=== PATIENT | male | born 1940 ===

== ENCOUNTER 2017-11-26 04:21 | Inpatient (IN) | payer BC, MEDICARE ==
[2017-11-26 05:17] VITALS: BMI 22.3
[2017-11-26] MEDS ORDERED: Iohexol 240 (50 ml) PO ONE (05:47)
[2017-11-26] MEDS ORDERED: Iohexol 240 (50 ml) ONE (06:08)
--- NOTE | 2017-11-26 06:54 | ED PDOC ---
HPI: Abdomen Time Seen by Provider: 11/26/17 05:26 Chief Complaint (Nursing): Abdominal Pain Chief Complaint (Provider): Abdominal Pain History Per: Patient History/Exam Limitations: no limitations Onset/Duration Of Symptoms: Days (x1) Current Symptoms Are (Timing): Still Present Additional Complaint(s): 77 y/o male with a PMHx of HTN presents to the ED for evaluation of abdominal pain, onset one day ago. Patient reports abdominal pain is associated with nausea. Patient additionally reports of feeling like his abdomen is distended and bloated. Patient states pain is worse in the RUQ and the Suprapubic area. Patient reports of having normal stool and normal urination since onset. Denies fever, vomiting and abdominal surgeries in the past. Gandy Dancer number [id number] used to obtain history from patient. PMD: Dr. Thompson Past Medical History Reviewed: Historical Data, Nursing Documentation, Vital Signs Vital Signs: Last Vital Signs Temp 99.7 F H 11/26/17 05:17 Pulse 75 11/26/17 05:17 Resp 18 11/26/17 05:17 BP 163/72 H 11/26/17 05:17 Pulse Ox 97 11/26/17 05:17 - Medical History PMH: HTN - Surgical History Surgical History: No Surg Hx Denies: Appendectomy, Cholecystectomy - Family History Family History: States: Unknown Family Hx - Home Medications Home Medications: Ambulatory Orders Medication Instructions Recorded Ibuprofen [Motrin Tab] 600 mg PO Q8 PRN 11/26/17 RX: Enalapril Maleate [Vasotec] 5 mg PO DAILY 11/26/17 - Allergies Allergies/Adverse Reactions: Allergies Allergy/AdvReac Type Severity Reaction Status Date / Time No Known Allergies Allergy Verified 11/26/17 05:17 Review of Systems ROS Statement: Except As Marked, All Systems Reviewed And Found Negative Constitutional: Negative for: Fever Gastrointestinal: Positive for: Nausea, Abdominal Pain, Other (Bloated/Distended Abdomen). Negative for: Vomiting, Diarrhea, Constipation Physical Exam - Reviewed Nursing Documentation Reviewed: Yes Vital Signs Reviewed: Yes - Physical Exam Appears: Positive for: No Acute Distress, Uncomfortable Head Exam: Positive for: ATRAUMATIC, NORMOCEPHALIC Skin: Positive for: Normal Color, Warm, Dry Eye Exam: Positive for: Normal appearance, EOMI, PERRL Neck: Positive for: Normal, Painless ROM Cardiovascular/Chest: Positive for: Regular Rate, Rhythm. Negative for: Murmur Respiratory: Positive for: Normal Breath Sounds. Negative for: Respiratory Distress Gastrointestinal/Abdominal: Positive for: Normal Exam, Soft, Tenderness (RUQ and Suprapubic Tenderness), Distended (Mild Distention) Back: Positive for: Normal Inspection. Negative for: L CVA Tenderness, R CVA Tenderness Extremity: Positive for: Normal ROM. Negative for: Pedal Edema, Deformity Neurologic/Psych: Positive for: Alert, Oriented. Negative for: Motor/Sensory Deficits - Laboratory Results Result Diagrams: 11/26/17 06:36 11/26/17 06:36 - ECG O2 Sat by Pulse Oximetry: 97 (RA) Pulse Ox Interpretation: Normal Medical Decision Making Medical Decision Making: Time: 605 A/P: Well appearing 77 y/o male with abdominal pain -- Differentials include but not limited to gallstones vs. cholecystitis vs. pancreatitis vs colitis, vs UTI -- CT Abd/Pelvis PO&IV Contrast -- CMP -- Lipase -- CBC with Differentials -- Iohexol 50 ml PO -- Toradol 15 mg IVP -- Urinalysis -- US Gallbladder & Common Duct Time: 0700 -- Patient endorsed to Dr. Medina, pending ER workup, reassessment and final ER disposition. Scribe Attestation: Documented by Robyn Hennessy, acting as a scribe for Britton Grewal MD. Provider Scribe Attestation: All medical record entries made by the Scribe were at my direction and personall y dictated by me. I have reviewed the chart and agree that the record accurately reflects my personal performance of the history, physical exam, medical decision making, and the department course for this patient. I have also personally directed, reviewed, and agree with the discharge instructions and disposition. Disposition - Clinical Impression Clinical Impression: Cholecystitis - Patient ED Disposition Is Patient to be Admitted: Transfer of Care - Disposition Disposition: Transfer of Care Disposition Time: 07:00 Condition: STABLE
[2017-11-26 07:31] LABS: BASO # 0.1 K/uL (0.0-0.2); BASO % 0.3 % (0.0-2.0); HEMOGLOBIN 13.5 g/dL (12.0-18.0); LYMPH # 1.4 K/uL (1.0-4.3); LYMPH % 8.7 % (20.0-40.0); MEAN CELL VOLUME 91.1 fl (80.0-94.0); MEAN CORPUSCULAR HEMOGLOBIN 30.6 pg (27.0-31.0); MEAN CORPUSCULAR HGB CONC 33.6 g/dL (33.0-37.0); MEAN PLATELET VOLUME 9.1 fl (7.2-11.7); MONO # 1.1 K/uL (0.0-0.8); MONO % 6.8 % (0.0-10.0); NEUT # 13.4 K/uL (1.8-7.0); NEUT % 84.2 % (50.0-75.0); NRBC % 0.1 % (0.0-0.0); PLATELET COUNT 269 K/uL (130-400); RBC 4.42 Mil/uL (4.40-5.90); RED CELL DISTRIBUTION WIDTH 13.7 % (11.5-14.5); WHITE BLOOD COUNT 15.9 K/uL (4.8-10.8)
[2017-11-26 07:45] LABS: ALB/GLOB RATIO 1.2 (1.0-2.1); ALBUMIN 4.1 g/dL (3.5-5.0); ALT/SGPT 30 U/L (21-72); AST/SGOT 22 U/L (17-59); BLOOD UREA NITROGEN 16 mg/dl (9-20); CALCIUM 9.1 mg/dL (8.4-10.2); GFR NON-AFRICAN AMERICAN > 60; LIPASE 42 U/L (23-300)
[2017-11-26] MEDS ORDERED: Sodium Chloride 0.9% 50 ML IV ONE (07:53)
[2017-11-26] MEDS ORDERED: Iohexol 300 100 ML IJ ONE (07:53)
--- NOTE | 2017-11-26 08:12 | ED PDOC ---
- Laboratory Results Result Diagrams: 11/26/17 06:36 11/26/17 06:36 - ECG O2 Sat by Pulse Oximetry: 97 (RA) Medical Decision Making Medical Decision Making: Called to evaluate pt with increasing abd pain and distention. Abd rigid tender Diminished bowel sounds. Will obtain CT abd/pelvis and surgical eval. Disposition - Clinical Impression Clinical Impression: Cholecystitis - POA Present On Arrival: None - Disposition Disposition: Admitted as In-Patient Disposition Time: 09:43 Forms: [employer] ([place]an)
[2017-11-26 08:30] LABS: URINE BACTERIA RARE (<OCC); URINE BILIRUBIN NEGATIVE (NEGATIVE); URINE BLOOD NEGATIVE (NEGATIVE); URINE CLARITY SLIGHTY-CLOUDY (Clear); URINE COLOR YELLOW (YELLOW); URINE GLUCOSE (UA) NEG (Normal); URINE LEUKOCYTE ESTERASE NEG Leu/uL (Negative); URINE PROTEIN NEGATIVE (NEGATIVE); URINE UROBILINOGEN 0.2-1.0 mg/dL (0.2-1.0)
[2017-11-26 08:57] LABS: BANDS 2 % (0-2); LYMPHOCYTE 9 % (20-50); MONOCYTE 3 % (0-10); NEUTROPHIL 86 % (42-75); PLATELET ESTIMATE NORMAL (NORMAL); TOTAL CELLS COUNTED 100
--- NOTE | 2017-11-26 09:31 | CT ---
Date of service: 11/26/2017 PROCEDURE: CT Abdomen and Pelvis with contrast HISTORY: RUQ pain, suprapubic pain COMPARISON: Ultrasound same day TECHNIQUE: Contrast dose: 95 milliliters Radiation dose: Total exam DLP = 299 mGy-cm. This CT exam was performed using one or more of the following dose reduction techniques: Automated exposure control, adjustment of the mA and/or kV according to patient size, and/or use of iterative reconstruction technique. FINDINGS: LOWER THORAX: Bilateral lower lobe subsegmental atelectasis and scarring is identified. No effusion is seen. Visualized esophagus shows evidence of small hiatal hernia. Visualized stomach shows no evidence of abnormal wall thickening. Duodenum is within normal limits. LIVER: A few small low-density probable liver cysts are appreciated in the liver. No appreciable solid enhancing mass is noted in the liver. There is some subtle intrahepatic dilatation identified. Common bile duct measures up to 9 up millimeters but appears to taper distally. Pancreatic duct is top-normal in size. GALLBLADDER AND BILE DUCTS: Gallbladder is mildly distended. In addition there is a 2.3 centimeter gallstone within the neck of the gallbladder. There appears to be mild pericholecystic fluid adjacent to the fundus of the gallbladder. Finding is suspicious for cholecystitis in the correct clinical setting although does not appear to be significant gallbladder wall thickening. PANCREAS: Pancreas is normal in outline and density. Pancreatic duct is top-normal in size. No peripancreatic inflammatory changes are seen. SPLEEN: Unremarkable. ADRENALS: Unremarkable. No mass. KIDNEYS AND URETERS: No hydronephrosis. No perinephric changes. No solid renal masses noted. No renal calculi identified. Kidneys are normal in size. VASCULATURE: No evidence of aneurysm. BOWEL: Chronic diverticular changes are noted. No pericolonic inflammatory change or bowel wall thickening is noted. No small bowel obstruction is noted. APPENDIX: Within normal limits. PERITONEUM: No ascites is seen elsewhere. No free intraperitoneal air is noted. LYMPH NODES: Unremarkable. No enlarged lymph nodes. BLADDER: Bladder is distended more than likely secondary to enlarged prostate gland. REPRODUCTIVE: Prostate gland is noted to be enlarged with heterogeneous density and calcification. BONES: No acute fracture. OTHER FINDINGS: None. IMPRESSION: Distended gallbladder with moderate size gallstone in the neck of the gallbladder. Mild pericholecystic fluid is appreciated without significant wall thickening. Cholecystitis is the diagnosis of exclusion. Nonspecific mild common bile duct and intrahepatic ductal dilatation although no common bile duct stone or ampullary abnormality is clearly seen. A few small liver cysts are noted.
[2017-11-26] MEDS ORDERED: Piperacillin/Tazobact 3.375 GM in Sodium Chloride 0.9% 100 ML IVPB STA (09:33)
[2017-11-26] MEDS ORDERED: Sodium Chloride 0.9% 1,000 ML IV STA (09:39)
--- NOTE | 2017-11-26 09:44 | US ---
Date of service: 11/26/2017 HISTORY: RUQ pain COMPARISON: CT scan same day. TECHNIQUE: Real-time transabdominal ultrasound examination of the right upper quadrant was performed.. FINDINGS: LIVER: Measures 17 cm in length. Grossly normal echogenicity of the liver parenchyma. Small cyst seen on the CT scan are not as well appreciated on this ultrasound examination. GALLBLADDER: There is a shadowing gallstone lodged within the neck of the gallbladder. This was nonmobile. Gallbladder wall appeared to measure 3 millimeters. There is some minimal hazy density of the gallbladder wall. Better appreciated on the CT scan was some pericholecystic fluid. This is not as well seen on the ultrasound exam possibly due to motion. COMMON BILE DUCT: Measures 90 10 mm. No stones. No dilatation. PANCREAS: Head and body of the pancreas are normal in outline. The tail the pancreas was obscured by bowel gas. Pancreas is better appreciated on the CT scan. RIGHT KIDNEY: Measures 10.3 cm in length. Normal echogenicity. No calculus, mass, or hydronephrosis. AORTA: No aneurysmal dilatation. IVC: Unremarkable. OTHER FINDINGS: None . IMPRESSION: Nonmobile calcified gallstone in the neck of the gallbladder. Patient was administered pain medication, and therefore sonographic Yo sign is not of diagnostic value. There may be some subtle haziness adjacent to the gallbladder wall which may reflect the low-density fluid seen on the CT scan. Further clinical follow-up of the patient is suggested. Common bile duct measures up to 9 millimeters without common bile duct calculus.
[2017-11-26] MEDS ORDERED: Piperacillin/Tazobact 3.375 gm Inj IVPB ONE (09:55)
--- NOTE | 2017-11-26 10:11 | CP.PCM.CON ---
History of Present Illness - History of Present Illness History of Present Illness: General surgery consult note for Dr. Suhail Womack, PGY-2 Pt S & E at bedside at 0950. History obtained using Interpretor Igor, #[id number] 77M w/PMH sig for HTN on Enalpril daily consulted for RUQ ab pain x 1 day. Pt reports fried pork for lunch yesterday with onset of moderate-severe constant RUQ abdominal pain that radiates to umbilicus and to back at 6pm. Pain temporarily alleviated by home med for cramping. Admits to nausea. Denies ever having prior, ever having problems with fried foods, constipation, diarrhea, changes in urinary habits, [place], sore throat, chest pain, SOB, F & C, fatigue, other complaints. Last BM was normal at 1:30pm one day prior to evaluation. In ED, afebrile, leukocytosis of 15.9. LFTs WNL. Lipase WNL. CT ab w/findings of distended GB, thickened wall, pericholecystic frluid, and stone in GB neck. Ab U/S w/stone in neck. PMH: HTN PSH: Hemorrhoidectomy All: NKDA SH: Denies ETOH, tobacco or illicit drug use or history of FH: Non contributory Review of Systems - Review of Systems All systems: reviewed and no additional remarkable complaints except - Constitutional Constitutional: absent: Chills, Fever, Weakness - EENT Ears: absent: Dizziness Nose/Mouth/Throat: absent: Sore Throat - Cardiovascular Cardiovascular: absent: Chest Pain - Gastrointestinal Gastrointestinal: Abdominal Pain, Nausea. absent: Change in Bowel Habits, Constipation, Diarrhea, Vomiting - Genitourinary Genitourinary: absent: Dysuria, Hematuria, Urinary Frequency - Musculoskeletal Musculoskeletal: Back Pain (radiation from RUQ) - Integumentary Integumentary: absent: Rash - Neurological Neurological: absent: Weakness - Psychiatric Psychiatric: Change in Appetite (decreased) - Endocrine Endocrine: absent: Fatigue Past Patient History - Past Social History Smoking Status: Never Smoked - CARDIAC Hx Hypertension: Yes - PSYCHIATRIC Hx Substance Use: No - SURGICAL HISTORY Hx Appendectomy: No Hx Cholecystectomy: No - ANESTHESIA Hx Anesthesia: Yes Meds Allergies/Adverse Reactions: Allergies Allergy/AdvReac Type Severity Reaction Status Date / Time No Known Allergies Allergy Verified 10/07/18 05:17 - Medications Medications: Current Medications Piperacillin Sod/Tazobactam (Sod 3.375 gm/ Sodium Chloride) 100 mls @ 100 mls/hr IVPB STAT STA; Protocol Stop: 11/26/17 10:32 Last Admin: 11/26/17 10:04 Dose: 100 mls/hr Sodium Chloride (Sodium Chloride 0.9%) 1,000 mls @ 100 mls/hr IV .Q10H STA Stop: 11/26/17 19:38 Last Admin: 11/26/17 10:02 Dose: 100 mls/hr Physical Exam - Constitutional Appears: Non-toxic, No Acute Distress - Head Exam Head Exam: ATRAUMATIC, NORMAL INSPECTION, NORMOCEPHALIC - Eye Exam Eye Exam: EOMI, Normal appearance - ENT Exam ENT Exam: Mucous Membranes Moist, Normal Exam - Neck Exam Neck exam: Positive for: Full Rom, Normal Inspection - Respiratory Exam Respiratory Exam: Clear to Auscultation Bilateral, NORMAL BREATHING PATTERN. absent: Rales, Rhonchi, Wheezes, Respiratory Distress - Cardiovascular Exam Cardiovascular Exam: REGULAR RHYTHM, +S1, +S2 - GI/Abdominal Exam GI & Abdominal Exam: Distended, Normal Bowel Sounds, Soft, Tenderness (RUQ). absent: Firm, Guarding, Hernia - Rectal Exam Rectal Exam: Deferred - Extremities Exam Extremities exam: Positive for: normal inspection. Negative for: pedal edema, tenderness - Neurological Exam Neurological exam: Alert, Oriented x3 - Psychiatric Exam Psychiatric exam: Normal Affect, Normal Mood - Skin Skin Exam: Dry, Intact, Normal Color, Warm Results - Vital Signs Recent Vital Signs: Last Vital Signs Temp 99.7 F H 11/26/17 05:17 Pulse 75 11/26/17 05:17 Resp 18 11/26/17 05:17 BP 163/72 H 11/26/17 05:17 Pulse Ox 97 11/26/17 09:44 - Labs Result Diagrams: 11/26/17 06:36 11/26/17 06:36 Labs: Laboratory Results - last 24 hr 11/26/17 11/26/17 11/26/17 06:36 06:36 07:24 WBC 15.9 H RBC 4.42 Hgb 13.5 Hct 40.3 MCV 91.1 MCH 30.6 MCHC 33.6 RDW 13.7 Plt Count 269 MPV 9.1 Neut % (Auto) 84.2 H Lymph % (Auto) 8.7 L [place] % (Auto) 6.8 Eos % (Auto) 0.0 Baso % (Auto) 0.3 Neut # (Auto) 13.4 H Lymph # (Auto) 1.4 [place] # (Auto) 1.1 H Eos # (Auto) 0.0 Baso # (Auto) 0.1 Neutrophils % (Manual) 86 H Band Neutrophils % 2 Lymphocytes % (Manual) 9 L Monocytes % (Manual) 3 Platelet Estimate Normal RBC Morphology Normal Sodium 138 Potassium 3.8 Chloride 106 Carbon Dioxide 22 Anion Gap 14 BUN 16 Creatinine 0.6 L Est GFR ( Amer) > 60 Est GFR (Non-Af Amer) > 60 Random Glucose 114 H Calcium 9.1 Total Bilirubin 0.7 AST 22 ALT 30 Alkaline Phosphatase 116 Total Protein 7.7 Albumin 4.1 Globulin 3.5 Albumin/Globulin Ratio 1.2 Lipase 42 Urine Color Yellow Urine Clarity Slighty-cloudy Urine pH 5.0 Ur Specific [place] 1.023 Urine Protein Negative Urine Glucose (UA) Neg Urine Ketones Negative Urine Blood Negative Urine Nitrate Negative Urine Bilirubin Negative Urine Urobilinogen 0.2-1.0 Ur Leukocyte Esterase Neg Urine RBC (Auto) 3 Urine Microscopic WBC < 1 Urine Bacteria Rare Assessment & Plan - Assessment and Plan (Free Text) Assessment: 77M w/PMH sig for HTN w/acute cholecystitis Plan: Admit to medical service Monitor VS Daily labs Pain control IV Abx Will need cardiac clearance prior to scheduling OR DW Dr. Tariq Womack, PGY-2 - Date & Time Date: 11/26/17 Time: 10:11
--- NOTE | 2017-11-26 11:20 | CP.PCM.HP ---
<WolfRosa - Last Filed: 11/26/17 12:51> History of Present Illness - History of Present Illness History of Present Illness: 76 y/o M with PMH of HTN (on enalapril) presented to ED c/o constant, sharp RUQ pain that began yesterday evening at about 5pm. The patient reports the pain was accompanied by some nausea, and was 7/10 in nature. His last meal prior to onset of pain was yesterday afternoon at about 1pm. He denied any hx of similar pain in the past, fever, chills or vomitting. PMD: Dr. Thompson PMHx: HTN MEDS: Enalapril 5mg PO QD PSHx: Hemorrhoidectomy AllERGIES: NKDA FH: Non contributory SH: Denies cigarette, ETOH use, or illicit drugs ED COURSE: Vitals: 99.7F, P-75bpm, RR- 18 BP: 163/72 CBC- WBC: 15.9, H & H: 13.5/40.3, Plt: 269 CMP: Lipase-42, AST- 22, ALT-30, Alk Phos- 116 UA: neg for leuk esterase, neg for nitrates Ketorolac 15mg IVP & Morphine 2 mg IVP were given Abd US: nonmobile calcified gallstone in neck of gallbladder; common bile duct 9 ml w/o common bile duct calculus. Abd CT: distended gallbladder with mod size gallstone in neck of gallbladder. Mild pericholecystic fluid is appreciated w/o significant wall thickening. Present on Admission - Present on Admission Any Indicators Present on Admission: No History of DVT/PE: No History of Uncontrolled Diabetes: No Urinary Catheter: No Decubitus Ulcer Present: No Past Patient History - Past Social History Smoking Status: Never Smoked - CARDIAC Hx Hypertension: Yes - PSYCHIATRIC Hx Substance Use: No - SURGICAL HISTORY Hx Appendectomy: No Hx Cholecystectomy: No - ANESTHESIA Hx Anesthesia: Yes Meds Allergies/Adverse Reactions: Allergies Allergy/AdvReac Type Severity Reaction Status Date / Time No Known Allergies Allergy Verified 11/26/17 05:17 Physical Exam - Constitutional Appears: Non-toxic, No Acute Distress - Head Exam Head Exam: ATRAUMATIC, NORMAL INSPECTION - ENT Exam ENT Exam: Mucous Membranes Moist - Respiratory Exam Respiratory Exam: Clear to Auscultation Bilateral - Cardiovascular Exam Cardiovascular Exam: REGULAR RHYTHM, +S1, +S2 - GI/Abdominal Exam Additional comments: soft with mild RUQ tenderness, neg Yo's sign, no rigidity or guarding - Extremities Exam Additional comments: calves- nontender, no pedal edema, distal pulses palpable - Neurological Exam Neurological exam: Alert, Oriented x3 - Psychiatric Exam Psychiatric exam: Normal Affect, Normal Mood - Skin Skin Exam: Dry, Intact Results - Vital Signs Recent Vital Signs: Last Vital Signs Temp 98.4 F 11/26/17 10:42 Pulse 75 11/26/17 10:42 Resp 16 11/26/17 10:42 BP 119/63 11/26/17 10:42 Pulse Ox 96 11/26/17 10:42 - Labs Result Diagrams: 11/26/17 06:36 11/26/17 06:36 Labs: Laboratory Results - last 24 hr 11/26/17 11/26/17 11/26/17 06:36 06:36 07:24 WBC 15.9 H RBC 4.42 Hgb 13.5 Hct 40.3 MCV 91.1 MCH 30.6 MCHC 33.6 RDW 13.7 Plt Count 269 MPV 9.1 Neut % (Auto) 84.2 H Lymph % (Auto) 8.7 L [place] % (Auto) 6.8 Eos % (Auto) 0.0 Baso % (Auto) 0.3 Neut # (Auto) 13.4 H Lymph # (Auto) 1.4 [place] # (Auto) 1.1 H Eos # (Auto) 0.0 Baso # (Auto) 0.1 Neutrophils % (Manual) 86 H Band Neutrophils % 2 Lymphocytes % (Manual) 9 L Monocytes % (Manual) 3 Platelet Estimate Normal RBC Morphology Normal Sodium 138 Potassium 3.8 Chloride 106 Carbon Dioxide 22 Anion Gap 14 BUN 16 Creatinine 0.6 L Est GFR ( Amer) > 60 Est GFR (Non-Af Amer) > 60 Random Glucose 114 H Calcium 9.1 Total Bilirubin 0.7 AST 22 ALT 30 Alkaline Phosphatase 116 Total Protein 7.7 Albumin 4.1 Globulin 3.5 Albumin/Globulin Ratio 1.2 Lipase 42 Urine Color Yellow Urine Clarity Slighty-cloudy Urine pH 5.0 Ur Specific [place] 1.023 Urine Protein Negative Urine Glucose (UA) Neg Urine Ketones Negative Urine Blood Negative Urine Nitrate Negative Urine Bilirubin Negative Urine Urobilinogen 0.2-1.0 Ur Leukocyte Esterase Neg Urine RBC (Auto) 3 Urine Microscopic WBC < 1 Urine Bacteria Rare Assessment & Plan - Assessment and Plan (Free Text) Assessment: 76 y/o M with PMH of HTN (on enalapril) who presented to ED with RUQ pain and found to have cholecysitis. 1. Cholecystitis (Acute, symptomatic) -Surgery team is on case and recommendations have been appreciated. Will continue to fu recommendations. -Dr. Gutiérrez consulted for cardiac clearance as per surgery team. -Continue pain medication regimen -Continue IV Zosyn 3.375gm Q6 2. HTN ( Chronic) -Continue enalapril 5mg PO QD <Oliver Azar D - Last Filed: 11/26/17 14:04> Results - Vital Signs Recent Vital Signs: Last Vital Signs Temp 98.4 F 11/26/17 10:42 Pulse 75 11/26/17 10:42 Resp 16 11/26/17 10:42 BP 119/63 11/26/17 10:42 Pulse Ox 96 11/26/17 10:42 - Labs Result Diagrams: 11/26/17 06:36 11/26/17 06:36 Labs: Laboratory Results - last 24 hr 11/26/17 11/26/17 11/26/17 06:36 06:36 07:24 WBC 15.9 H RBC 4.42 Hgb 13.5 Hct 40.3 MCV 91.1 MCH 30.6 MCHC 33.6 RDW 13.7 Plt Count 269 MPV 9.1 Neut % (Auto) 84.2 H Lymph % (Auto) 8.7 L [place] % (Auto) 6.8 Eos % (Auto) 0.0 Baso % (Auto) 0.3 Neut # (Auto) 13.4 H Lymph # (Auto) 1.4 [place] # (Auto) 1.1 H Eos # (Auto) 0.0 Baso # (Auto) 0.1 Neutrophils % (Manual) 86 H Band Neutrophils % 2 Lymphocytes % (Manual) 9 L Monocytes % (Manual) 3 Platelet Estimate Normal RBC Morphology Normal Sodium 138 Potassium 3.8 Chloride 106 Carbon Dioxide 22 Anion Gap 14 BUN 16 Creatinine 0.6 L Est GFR ( Amer) > 60 Est GFR (Non-Af Amer) > 60 Random Glucose 114 H Calcium 9.1 Total Bilirubin 0.7 AST 22 ALT 30 Alkaline Phosphatase 116 Total Protein 7.7 Albumin 4.1 Globulin 3.5 Albumin/Globulin Ratio 1.2 Lipase 42 Urine Color Yellow Urine Clarity Slighty-cloudy Urine pH 5.0 Ur Specific [place] 1.023 Urine Protein Negative Urine Glucose (UA) Neg Urine Ketones Negative Urine Blood Negative Urine Nitrate Negative Urine Bilirubin Negative Urine Urobilinogen 0.2-1.0 Ur Leukocyte Esterase Neg Urine RBC (Auto) 3 Urine Microscopic WBC < 1 Urine Bacteria Rare Attending/Attestation - Attestation I have personally seen and examined this patient.: Yes I have fully participated in the care of the patient.: Yes I have reviewed all pertinent clinical information: Yes
[2017-11-26 14:34] LABS: PROTHROMBIN TIME 11.5 Seconds (9.8-13.1)
[2017-11-26 14:36] LABS: PARTIAL THROMBOPLASTIN TIME 30.6 Seconds (25.6-37.1)
--- NOTE | 2017-11-26 15:03 | RAD ---
Date of service: 11/26/2017 PROCEDURE: CHEST RADIOGRAPH, 1 VIEW HISTORY: clearance COMPARISON: None available. FINDINGS: LUNGS: Single frontal view of the chest was performed. Mild bibasilar volume loss is suspected with some patchy interstitial changes noted at the lung bases. PLEURA: No pneumothorax or pleural fluid seen. CARDIOVASCULAR: Heart is mildly enlarged. No hilar enlargement is seen. OSSEOUS STRUCTURES: No significant abnormalities. VISUALIZED UPPER ABDOMEN: Normal. OTHER FINDINGS: None. IMPRESSION: Mild subsegmental atelectasis or volume loss at the lung bases. No appreciable CHF.
[2017-11-26] MEDS: Sodium Chloride 0.9% 1,000 ML IV SCH ×2 (15:09→22:10)
[2017-11-26] MEDS: Piperacillin/Tazobact 3.375 GM in Sodium Chloride 0.9% 100 ML IVPB SCH ×2 (16:30→21:39)
[2017-11-26] MEDS ORDERED: Enoxaparin 40 mg Syringe SC SCH (21:00)
--- NOTE | 2017-11-26 21:59 | CARD ---
APPROVED REPORT Date of service: 11/26/2017 EKG Measurement Heart [id number] <Conclusion> Normal sinus rhythm Right bundle branch block Minimal voltage criteria for LVH, may be normal variant Abnormal ECG
[2017-11-26] MEDS: Enoxaparin 40 mg Syringe SC SCH (22:07)
[2017-11-27] MEDS: Piperacillin/Tazobact 3.375 GM in Sodium Chloride 0.9% 100 ML IVPB SCH ×4 (03:10→22:00)
[2017-11-27 06:24] LABS: BASO % 0.1 % (0.0-2.0); HEMOGLOBIN 12.3 g/dL (12.0-18.0); LYMPH # 1.1 K/uL (1.0-4.3); LYMPH % 6.2 % (20.0-40.0); MEAN CORPUSCULAR HEMOGLOBIN 30.5 pg (27.0-31.0); MEAN CORPUSCULAR HGB CONC 33.5 g/dL (33.0-37.0); MEAN PLATELET VOLUME 8.8 fl (7.2-11.7); MONO # 1.2 K/uL (0.0-0.8); MONO % 6.9 % (0.0-10.0); NEUT # 15.5 K/uL (1.8-7.0); NEUT % 86.8 % (50.0-75.0); RBC 4.02 Mil/uL (4.40-5.90); WHITE BLOOD COUNT 17.8 K/uL (4.8-10.8)
[2017-11-27 06:45] LABS: BLOOD UREA NITROGEN 13 mg/dl (9-20); CALCIUM 7.9 mg/dL (8.4-10.2); GFR NON-AFRICAN AMERICAN > 60
--- NOTE | 2017-11-27 08:36 | CP.PCM.PN ---
Subjective - Date & Time of Evaluation Date of Evaluation: 11/27/17 Time of Evaluation: 07:00 - Subjective Subjective: GENERAL SURGERY PROGRESS NOTE FOR DR. RAMOS Patient seen and examined at bedside. he is NPO. No complaints. Objective - Vital Signs/Intake and Output Vital Signs (last 24 hours): Temp Pulse Resp BP Pulse Ox 99.7 F H 76 19 106/64 95 11/27/17 07:39 11/27/17 07:39 11/27/17 07:39 11/27/17 07:39 11/27/17 07:39 - Medications Medications: Current Medications Acetaminophen (Tylenol 325mg Tab) 650 mg PO Q6 PRN PRN Reason: Fever >100.4 F Last Admin: 11/26/17 15:51 Dose: 650 mg Enalapril Maleate (Vasotec) 5 mg PO DAILY [facility] Last Admin: 11/26/17 14:01 Dose: 5 mg Enoxaparin Sodium (Lovenox) 40 mg SC DAILY [facility]; Protocol Last Admin: 11/26/17 22:07 Dose: 40 mg Piperacillin Sod/Tazobactam (Sod 3.375 gm/ Sodium Chloride) 100 mls @ 100 mls/hr IVPB Q6 [facility]; Protocol Last Admin: 11/27/17 03:10 Dose: 100 mls/hr Sodium Chloride (Sodium Chloride 0.9%) 1,000 mls @ 100 mls/hr IV .Q10H [facility] Stop: 11/27/17 11:51 Last Admin: 11/26/17 22:10 Dose: 100 mls/hr Morphine Sulfate (Morphine) 2 mg IVP Q4 PRN PRN Reason: Pain, moderate (4-7) Pantoprazole Sodium (Protonix Inj) 40 mg IVP DAILY [facility] Last Admin: 11/26/17 12:13 Dose: 40 mg - Labs Labs: 11/27/17 06:00 11/27/17 06:00 PT 11.5 Seconds (9.8-13.1) 11/26/17 14:10 INR 1.0 11/26/17 14:10 APTT 30.6 Seconds (25.6-37.1) 11/26/17 14:10 - Constitutional Appears: Non-toxic, No Acute Distress - Head Exam Head Exam: ATRAUMATIC, NORMAL INSPECTION - Respiratory Exam Respiratory Exam: NORMAL BREATHING PATTERN. absent: Respiratory Distress - Cardiovascular Exam Cardiovascular Exam: +S1, +S2 - GI/Abdominal Exam GI & Abdominal Exam: Soft, Tenderness (tender in RUQ). absent: Distended, Firm, Guarding, Rigid, Rebound - Neurological Exam Neurological Exam: Alert, Awake - Psychiatric Exam Psychiatric exam: Normal Affect, Normal Mood - Skin Skin Exam: Normal Color, Warm Assessment and Plan - Assessment and Plan (Free Text) Assessment: 77yo M with PMHx of HTN with cholelithiasis, possible cholecystitis - Afebrile, VSS - Leukocytosis WBC 17.8 - LFTs and Bilirubin increased today, bilirubin 2.8, CBD dilated 9mm - MRCP ordered to rule out choledocholithiasis - Lovenox held & pt NPO in case OR today - Pending cardiac clearance, seen by Dr. Gutiérrez today, ECHO ordered - Discussed plan with Dr. Tariq Miller PGY-4
[2017-11-27] MEDS: Sodium Chloride 0.9% 1,000 ML IV SCH (08:41)
[2017-11-27 08:42] LABS: ALBUMIN 3.1 g/dL (3.5-5.0); ALT/SGPT 699 U/L (21-72); AST/SGOT 298 U/L (17-59)
--- NOTE | 2017-11-27 09:17 | CP.PCM.CON ---
History of Present Illness - History of Present Illness History of Present Illness: The patient came to the emergency room complaining of severe abdominal pain. He has been diagnosed as having acute cholecystitis and this evaluation was requested prior to his undergoing surgery for the same. The patient is a hypertensive who is been taking Norvasc for last couple of years. He is not a diabetic and has never been a smoker and can walk 8-10 blocks without any difficulty. He has never experienced any chest pain and there is no history of hospitalization for any cardiac issue. He denies any pedal edema or orthopnea or palpitations. There is no significant past or family history. Physical examination shows a middle aged man lying virtually flat in bed. He was afebrile at the time of this examination. Had a heart rate of 74 bpm regular and a blood pressure of 114/70 mmHg. His jugular venous pressure was not elevated and there was no edema over his lower extremities. The pedal pulses were well felt. There were no carotid bruits. The apex was palpable in the face pain is the first and second heart sounds were normal. There was no murmur or gallop. There were no rales. His abdomen was soft there was a vague sense of tenderness in the right upper quadrant. There was no guarding or rigidity. His electrocardiogram showed sinus rhythm with a right bundle branch block. No pathological Q waves were detected on his cardiogram. Lab data shows leukocytosis with neutrophils being 86.8%. His platelet count and hemoglobin were normal. His BUN/creatinine were normal. Serum potassium was 3.5 mg/L. His liver enzymes as well as bilirubin show an abrupt rise today as compared to yesterday's levels. Impression: Acute cholecystitis in a patient with cholelithiasis. History of hypertension. The patient does not display any new overt signs of congestive cardiac failure and appears to have a good effort tolerance. He is hemodynamically stable. I have requested an echocardiogram in light of the fact that he has a right bundle branch block on his resting electrocardiogram which could well be a benign finding. Past Patient History - Past Medical History & Family History Past Medical History?: Yes - Past Social History Smoking Status: Never Smoked - CARDIAC Hx Hypertension: Yes - PULMONARY Hx Respiratory Disorders: No - NEUROLOGICAL Hx Neurological Disorder: No - HEENT Hx HEENT Problems: No - RENAL Hx Chronic Kidney Disease: No - ENDOCRINE/METABOLIC Hx Endocrine Disorders: No - HEMATOLOGICAL/ONCOLOGICAL Hx Blood Disorders: No - INTEGUMENTARY Hx Dermatological Problems: No - MUSCULOSKELETAL/RHEUMATOLOGICAL Hx Musculoskeletal Disorders: No Hx Falls: No - GASTROINTESTINAL Hx Gastrointestinal Disorders: No - GENITOURINARY/GYNECOLOGICAL Hx Genitourinary Disorders: No - PSYCHIATRIC Hx Psychophysiologic Disorder: No Hx Substance Use: No - SURGICAL HISTORY Hx Appendectomy: No Hx Cholecystectomy: No - ANESTHESIA Hx Anesthesia: Yes Meds Allergies/Adverse Reactions: Allergies Allergy/AdvReac Type Severity Reaction Status Date / Time No Known Allergies Allergy Verified 11/26/17 05:17 - Medications Medications: Current Medications Acetaminophen (Tylenol 325mg Tab) 650 mg PO Q6 PRN PRN Reason: Fever >100.4 F Last Admin: 11/26/17 15:51 Dose: 650 mg Enalapril Maleate (Vasotec) 5 mg PO DAILY [facility] Last Admin: 11/26/17 14:01 Dose: 5 mg Enoxaparin Sodium (Lovenox) 40 mg SC DAILY [facility]; Protocol Last Admin: 11/26/17 22:07 Dose: 40 mg Piperacillin Sod/Tazobactam (Sod 3.375 gm/ Sodium Chloride) 100 mls @ 100 mls/hr IVPB Q6 [facility]; Protocol Last Admin: 11/27/17 03:10 Dose: 100 mls/hr Sodium Chloride (Sodium Chloride 0.9%) 1,000 mls @ 100 mls/hr IV .Q10H [facility] Stop: 11/27/17 11:51 Last Admin: 11/27/17 08:41 Dose: 100 mls/hr Potassium Chloride (Potassium Chloride 10 Meq/100 Ml) 100 mls @ 100 mls/hr IVPB Q1 [facility] Stop: 11/27/17 10:59 Morphine Sulfate (Morphine) 2 mg IVP Q4 PRN PRN Reason: Pain, moderate (4-7) Pantoprazole Sodium (Protonix Inj) 40 mg IVP DAILY [facility] Last Admin: 11/27/17 08:39 Dose: 40 mg Results - Vital Signs Recent Vital Signs: Last Vital Signs Temp 99.7 F H 11/27/17 07:39 Pulse 76 11/27/17 07:39 Resp 19 11/27/17 07:39 BP 106/64 11/27/17 07:39 Pulse Ox 95 11/27/17 07:39 - Labs Result Diagrams: 11/27/17 06:00 11/27/17 06:00 Labs: Laboratory Results - last 24 hr 11/26/17 11/27/17 11/27/17 14:10 06:00 06:00 WBC 17.8 H RBC 4.02 L Hgb 12.3 Hct 36.6 MCV 91.0 MCH 30.5 MCHC 33.5 RDW 14.0 Plt Count 240 MPV 8.8 Neut % (Auto) 86.8 H Lymph % (Auto) 6.2 L Mitchell % (Auto) 6.9 Eos % (Auto) 0.0 Baso % (Auto) 0.1 Neut # (Auto) 15.5 H Lymph # (Auto) 1.1 Mitchell # (Auto) 1.2 H Eos # (Auto) 0.0 Baso # (Auto) 0.0 PT 11.5 INR 1.0 APTT 30.6 Sodium 136 Potassium 3.5 L Chloride 101 Carbon Dioxide 28 Anion Gap 11 BUN 13 Creatinine 0.8 Est GFR ( Amer) > 60 Est GFR (Non-Af Amer) > 60 Random Glucose 110 Calcium 7.9 L Total Bilirubin 2.8 H AST 298 H D ALT 699 H D Alkaline Phosphatase 186 H D Total Protein 6.3 Albumin 3.1 L D Globulin 3.2 Albumin/Globulin Ratio 1.0
--- NOTE | 2017-11-27 10:18 | CP.PCM.PN ---
Subjective - Date & Time of Evaluation Date of Evaluation: 11/27/17 Time of Evaluation: 10:17 - Subjective Subjective: General Surgery Pt seen and examined this AM. He reports pain is much better controlled. He rates his pain 0/10 at this time and goes up to 4/10 when RUQ is pressed on. Remains NPO. (-) N/V. Afebrile. Pt was just seen by Dr. Gutiérrez for cardiology clearance. Pending ECHO today. Labs and vitals noted. T bili bumped today to 2.8 from 0.7, as well as the rest of his LFTs. K 3.5 PE Gen: Pt laying in bed in NAD Skin: warm and dry, (-) jaundice Cardio: S1S2 RRR Lungs: CTA bilaterally Abd: Soft, (+) RUQ tenderness Extr: (-) calf tenderness A/P Cholelithiasis, cholecystitis, Elevated LFTs Keep NPO MRCP ordered stat K repleted Repeat labs in AM Continue IVF Continue antibiotics ECHO pending Cardiology clearance pending Objective - Vital Signs/Intake and Output Vital Signs (last 24 hours): Temp Pulse Resp BP Pulse Ox 99.7 F H 76 19 106/64 95 11/27/17 07:39 11/27/17 07:39 11/27/17 07:39 11/27/17 07:39 11/27/17 07:39 - Medications Medications: Current Medications Acetaminophen (Tylenol 325mg Tab) 650 mg PO Q6 PRN PRN Reason: Fever >100.4 F Last Admin: 11/26/17 15:51 Dose: 650 mg Enalapril Maleate (Vasotec) 5 mg PO DAILY [facility] Last Admin: 11/26/17 14:01 Dose: 5 mg Enoxaparin Sodium (Lovenox) 40 mg SC DAILY [facility]; Protocol Last Admin: 11/26/17 22:07 Dose: 40 mg Piperacillin Sod/Tazobactam (Sod 3.375 gm/ Sodium Chloride) 100 mls @ 100 mls/hr IVPB Q6 [facility]; Protocol Last Admin: 11/27/17 09:18 Dose: 100 mls/hr Sodium Chloride (Sodium Chloride 0.9%) 1,000 mls @ 100 mls/hr IV .Q10H [facility] Stop: 11/27/17 11:51 Last Admin: 11/27/17 08:41 Dose: 100 mls/hr Potassium Chloride (Potassium Chloride 10 Meq/100 Ml) 100 mls @ 100 mls/hr IVPB Q1 [facility] Stop: 11/27/17 10:59 Morphine Sulfate (Morphine) 2 mg IVP Q4 PRN PRN Reason: Pain, moderate (4-7) Pantoprazole Sodium (Protonix Inj) 40 mg IVP DAILY [facility] Last Admin: 11/27/17 08:39 Dose: 40 mg - Labs Labs: 11/27/17 06:00 11/27/17 06:00 PT 11.5 Seconds (9.8-13.1) 11/26/17 14:10 INR 1.0 11/26/17 14:10 APTT 30.6 Seconds (25.6-37.1) 11/26/17 14:10
[2017-11-27] MEDS: Potassium CL 10mEq/100ml 100 ML IVPB SCH ×2 (12:41→15:04)
--- NOTE | 2017-11-27 14:47 | CP.PCM.PN ---
<CarmelinaLane - Last Filed: 11/27/17 14:48> Subjective - Date & Time of Evaluation Date of Evaluation: 11/27/17 Time of Evaluation: 14:45 - Subjective Subjective: 77 yo seen and evaluated at bedside, in no acute distress. He is in bed resting comfortably. States his pain is controlled and that he only has minor pain when he presses into his abdomen. Denies N/V/F/C/SOB/CP today. Has no other acute complaints. Objective - Vital Signs/Intake and Output Vital Signs (last 24 hours): Temp Pulse Resp BP Pulse Ox 99.7 F H 76 19 106/64 95 11/27/17 07:39 11/27/17 07:39 11/27/17 07:39 11/27/17 07:39 11/27/17 07:39 - Medications Medications: Current Medications Acetaminophen (Tylenol 325mg Tab) 650 mg PO Q6 PRN PRN Reason: Fever >100.4 F Last Admin: 11/26/17 15:51 Dose: 650 mg Enalapril Maleate (Vasotec) 5 mg PO DAILY [facility] Last Admin: 11/26/17 14:01 Dose: 5 mg Enoxaparin Sodium (Lovenox) 40 mg SC DAILY [facility]; Protocol Last Admin: 11/26/17 22:07 Dose: 40 mg Piperacillin Sod/Tazobactam (Sod 3.375 gm/ Sodium Chloride) 100 mls @ 100 mls/hr IVPB Q6 [facility]; Protocol Last Admin: 11/27/17 09:18 Dose: 100 mls/hr Morphine Sulfate (Morphine) 2 mg IVP Q4 PRN PRN Reason: Pain, moderate (4-7) Pantoprazole Sodium (Protonix Inj) 40 mg IVP DAILY [facility] Last Admin: 11/27/17 08:39 Dose: 40 mg - Labs Labs: 11/27/17 06:00 11/27/17 06:00 PT 11.5 Seconds (9.8-13.1) 11/26/17 14:10 INR 1.0 11/26/17 14:10 APTT 30.6 Seconds (25.6-37.1) 11/26/17 14:10 - Constitutional Appears: Well, Non-toxic, No Acute Distress - Head Exam Head Exam: ATRAUMATIC, NORMAL INSPECTION - ENT Exam ENT Exam: Mucous Membranes Moist, Normal Exam - Respiratory Exam Respiratory Exam: Clear to Ausculation Bilateral - Cardiovascular Exam Cardiovascular Exam: REGULAR RHYTHM, +S1, +S2 - GI/Abdominal Exam Additional comments: soft abdomen mild RUQ tendons negative rivas's sign no rigidity or guarding - Extremities Exam Additional comments: cap refill <3 seconds no LE edema appreciated DP and PT pulses palpable temp gradient warm to cool from proximal to distal - Neurological Exam Neurological Exam: Alert, Awake, Oriented x3 - Psychiatric Exam Psychiatric exam: Normal Affect, Normal Mood - Skin Skin Exam: Dry, Intact, Normal Color Assessment and Plan - Assessment and Plan (Free Text) Assessment: 76 y/o M with PMH of HTN (on enalapril) who presented to ED with RUQ pain and found to have cholecysitis. Plan: 1. Cholecystitis (Acute, symptomatic) -Surgery team is on case and recommendations have been appreciated. Will continue to fu recommendations. -MRCP today - taken, results pending -Dr. Gutiérrez consulted for cardiac clearance as per surgery team - right bundle branch block appreciated on EKG, f/u echocardiogram before providing clearance (surgery team aware) - taken, results pending -Continue pain medication regimen -Continue IV Zosyn 3.375gm Q6 - #4 2. HTN ( Chronic) -Continue enalapril 5mg PO QD 3. DVT prophylaxis - lovenox 40 mg SC daily (on hold for surgery tomorrow) <Oliver Azar D - Last Filed: 11/27/17 15:22> Objective - Vital Signs/Intake and Output Vital Signs (last 24 hours): Temp Pulse Resp BP Pulse Ox 99.7 F H 76 19 106/64 95 11/27/17 07:39 11/27/17 07:39 11/27/17 07:39 11/27/17 07:39 11/27/17 07:39 - Medications Medications: Current Medications Acetaminophen (Tylenol 325mg Tab) 650 mg PO Q6 PRN PRN Reason: Fever >100.4 F Last Admin: 11/26/17 15:51 Dose: 650 mg Enalapril Maleate (Vasotec) 5 mg PO DAILY [facility] Last Admin: 11/26/17 14:01 Dose: 5 mg Enoxaparin Sodium (Lovenox) 40 mg SC DAILY [facility]; Protocol Last Admin: 11/26/17 22:07 Dose: 40 mg Piperacillin Sod/Tazobactam (Sod 3.375 gm/ Sodium Chloride) 100 mls @ 100 mls/hr IVPB Q6 [facility]; Protocol Last Admin: 11/27/17 09:18 Dose: 100 mls/hr Morphine Sulfate (Morphine) 2 mg IVP Q4 PRN PRN Reason: Pain, moderate (4-7) Pantoprazole Sodium (Protonix Inj) 40 mg IVP DAILY [facility] Last Admin: 11/27/17 08:39 Dose: 40 mg - Labs Labs: 11/27/17 06:00 11/27/17 06:00 PT 11.5 Seconds (9.8-13.1) 11/26/17 14:10 INR 1.0 11/26/17 14:10 APTT 30.6 Seconds (25.6-37.1) 11/26/17 14:10 Attending/Attestation - Attestation I have personally seen and examined this patient.: Yes I have fully participated in the care of the patient.: Yes I have reviewed all pertinent clinical information, including history, physical exam and plan: Yes
--- NOTE | 2017-11-27 15:32 | MRI ---
Date of service: 11/27/2017 PROCEDURE: Magnetic Resonance Cholangiopancreatography HISTORY: COMPARISON: Abdomen and pelvis CT and abdomen ultrasound limited 11/26/2017 as well. TECHNIQUE: Multiplanar, multisequence MR images of the abdomen were obtained, including heavily T2 weighted MRCP images of the biliary system. Rotating maximum intensity projection images of the biliary system were generated. FINDINGS: MRCP: Although there is no choledocholithiasis appreciable, the common bile duct measures 9.6 mm proximally, 9.4 mm proximally and only 4 mm distally. Common hepatic duct measures 8.0 cm. Remaining intrahepatic biliary ducts appear normal in caliber although there is a probable 1.4 cm choledochocele at the central liver versus adjacent hepatic cyst. A 9 mm cyst is seen in the right lobe liver posteromedially. There are a few scattered hyperintensities on long TR weighted sequences identified at the medial lateral left lobe of the liver measuring under 1 cm which are too small to characterize but statistically likely reflects cysts. LIVER: As above. GALLBLADDER: Gallbladder is rather distended with thick wall measuring up to 4 mm associated with pericholecystic fluid collection suggestive of cholecystitis. Sludge is identified layering in the dependent portion large calculus possibly impacted at the neck measuring 2.3 x 2.7 cm. Additional smaller calculi are not excluded. This is not felt to be directly impacting the proximal common bile duct necessarily. This would not explain mid common bile duct dilatation. SPLEEN: Unremarkable. PANCREAS: Unremarkable. ADRENALS: Unremarkable. KIDNEYS: Unremarkable. AORTA: No aneurysm. ASCITES: None. OTHER FINDINGS: None. IMPRESSION: Moderate common bile duct dilatation as well as common hepatic duct without further intrahepatic biliary dilatation appreciable. No choledocholithiasis. No gross pancreatic findings on this noncontrast MR examination. Active cholecystitis again suggested with large calculus at the neck of the gallbladder but likely impacted as discussed above. Multiple small hepatic cysts suggested or and possible choledochocele is seen near the central liver. Please see discussion above.
[2017-11-28] MEDS: Piperacillin/Tazobact 3.375 GM in Sodium Chloride 0.9% 100 ML IVPB SCH ×3 (03:19→16:46)
[2017-11-28 05:25] LABS: BASO % 0.1 % (0.0-2.0); HEMOGLOBIN 11.9 g/dL (12.0-18.0); MEAN CORPUSCULAR HEMOGLOBIN 30.7 pg (27.0-31.0); MEAN CORPUSCULAR HGB CONC 33.7 g/dL (33.0-37.0); MEAN PLATELET VOLUME 8.9 fl (7.2-11.7); MONO # 1.1 K/uL (0.0-0.8); MONO % 5.3 % (0.0-10.0); NEUT % 89.6 % (50.0-75.0); RBC 3.87 Mil/uL (4.40-5.90); RED CELL DISTRIBUTION WIDTH 13.9 % (11.5-14.5); WHITE BLOOD COUNT 20.1 K/uL (4.8-10.8)
[2017-11-28 05:37] LABS: ALB/GLOB RATIO 0.9 (1.0-2.1); ALBUMIN 3.1 g/dL (3.5-5.0); ALT/SGPT 384 U/L (21-72); AST/SGOT 78 U/L (17-59); BLOOD UREA NITROGEN 13 mg/dl (9-20); CALCIUM 7.9 mg/dL (8.4-10.2); GFR NON-AFRICAN AMERICAN > 60
--- NOTE | 2017-11-28 08:28 | CARD ---
APPROVED REPORT Date of service: 11/27/2017 EXAM: Two-dimensional and M-mode echocardiogram with Doppler and color Doppler. Other Information Quality : GoodRhythm : NSR INDICATION Cardiac Clearance 2D DIMENSIONS IVSd1.11 (0.7-1.1cm)LVDd4.55 (3.9-5.9cm) LVOT Diameter1.73 (1.8-2.4cm)PWd0.76 (0.7-1.1cm) IVSs1.35 (0.8-1.2cm)LVDs2.83 (2.5-4.0cm) FS (%) 37.8 %PWs1.35 (0.8-1.2cm) M-Mode DIMENSIONS Left Atrium (MM)3.64 (2.5-4.0cm)Aortic Root3.17 (2.2-3.7cm) Aortic Cusp Exc.1.90 (1.5-2.0cm) Aortic Valve AoV Peak Urwlabsn315.0cm/sAoV VTI27.7cmAO Peak GR.9mmHg LVOT Peak Aznrwhlp336.9cm/sLVOT VTI23.15cmAO Mean GR.5mmHg SALONI (VMAX)1.46hu6MOK (VTI)1.21cm2 Mitral Valve MV E Fthevaux71.5cm/sMV DECEL [id number] A Kqoajdcm43.5cm/s MV IGL43ldG/A ratio0.8MVA (PHT)2.79cm2 TDI Lateral E' Peak V7.04cm/sMedial E' Peak V7.41cm/sE/Lateral E'9.4 E/Medial E'9.0 Pulmonary Valve RVOT VTI21.7cm Tricuspid Valve TR Peak Duynnwmc070uy/sRAP PQXXSGMN72imGdRY Peak Gr.26mmHg BNQV94zoIl LEFT VENTRICLE The left ventricle is normal size. There is normal left ventricular wall thickness. Left ventricle systolic function is normal. LVEF is 65-70%. There is normal LV segmental wall motion. Transmitral Doppler flow pattern is Grade I-abnormal relaxation pattern. RIGHT VENTRICLE The right ventricle is normal size. There is normal right ventricular wall thickness. The right ventricular systolic function is normal. ATRIA The left atrium size is normal. The right atrium size is normal. AORTIC VALVE The aortic valve is mildly sclerotic. No aortic regurgitation is present. There is no aortic valvular stenosis. MITRAL VALVE The mitral valve is normal in structure. There is no evidence of mitral valve prolapse. There is no mitral valve stenosis. Mitral regurgitation is trace. TRICUSPID VALVE The tricuspid valve is normal in structure. There is trace to mild tricuspid regurgitation. Right ventricular systolic pressure is estimated at 36 mmHg. There is mild pulmonary hypertension. PULMONIC VALVE The pulmonary valve is normal in structure. There is no pulmonic valvular regurgitation. GREAT VESSELS The aortic root is normal in size. The IVC is normal in size and collapses >50% with inspiration. PERICARDIAL EFFUSION The pericardium appears normal. <Conclusion> The left ventricle is normal size. There is normal left ventricular wall thickness. There is normal LV segmental wall motion. Left ventricle systolic function is normal. LVEF is 65-70%. Transmitral Doppler flow pattern is Grade I-abnormal relaxation pattern.
--- NOTE | 2017-11-28 08:35 | CP.PCM.PN ---
Subjective - Date & Time of Evaluation Date of Evaluation: 11/28/17 Time of Evaluation: 08:30 - Subjective Subjective: Vital signs stable Mild abd discomfort No nausea, vomitting, chills or fever Echo reviewed LVEF normal No significant valvulopathy Pt medically stable for Sx under necessary anesthesia Objective - Vital Signs/Intake and Output Vital Signs (last 24 hours): Temp Pulse Resp BP Pulse Ox 98.9 F 70 19 111/67 96 11/28/17 07:41 11/28/17 07:41 11/28/17 07:41 11/28/17 07:41 11/28/17 07:41 - Medications Medications: Current Medications Acetaminophen (Tylenol 325mg Tab) 650 mg PO Q6 PRN PRN Reason: Fever >100.4 F Last Admin: 11/27/17 16:20 Dose: 650 mg Enalapril Maleate (Vasotec) 5 mg PO DAILY [facility] Last Admin: 11/26/17 14:01 Dose: 5 mg Enoxaparin Sodium (Lovenox) 40 mg SC DAILY [facility]; Protocol Last Admin: 11/26/17 22:07 Dose: 40 mg Piperacillin Sod/Tazobactam (Sod 3.375 gm/ Sodium Chloride) 100 mls @ 100 mls/hr IVPB Q6 [facility]; Protocol Last Admin: 11/28/17 03:19 Dose: 100 mls/hr Morphine Sulfate (Morphine) 2 mg IVP Q4 PRN PRN Reason: Pain, moderate (4-7) Pantoprazole Sodium (Protonix Inj) 40 mg IVP DAILY [facility] Last Admin: 11/27/17 08:39 Dose: 40 mg - Labs Labs: 11/28/17 04:40 11/28/17 04:40 PT 11.5 Seconds (9.8-13.1) 11/26/17 14:10 INR 1.0 11/26/17 14:10 APTT 30.6 Seconds (25.6-37.1) 11/26/17 14:10
--- NOTE | 2017-11-28 08:37 | CP.PCM.PN ---
<Nazario Cosmeson - Last Filed: 11/28/17 08:32> Subjective - Date & Time of Evaluation Date of Evaluation: 11/28/17 Time of Evaluation: 08:32 - Subjective Subjective: 77 yo seen and evaluated at bedside resting comfortably. AAOx3 and NAD. He is resting comfortably. Reports mild abdominal pain. States the last time he ate or drank was 6:00PM last night. He has no acute complaints today. Denies N/V/F/C/SOB. Objective - Vital Signs/Intake and Output Vital Signs (last 24 hours): Temp Pulse Resp BP Pulse Ox 98.9 F 70 19 111/67 96 11/28/17 07:41 11/28/17 07:41 11/28/17 07:41 11/28/17 07:41 11/28/17 07:41 - Medications Medications: Current Medications Acetaminophen (Tylenol 325mg Tab) 650 mg PO Q6 PRN PRN Reason: Fever >100.4 F Last Admin: 11/27/17 16:20 Dose: 650 mg Enalapril Maleate (Vasotec) 5 mg PO DAILY [facility] Last Admin: 11/26/17 14:01 Dose: 5 mg Enoxaparin Sodium (Lovenox) 40 mg SC DAILY [facility]; Protocol Last Admin: 11/26/17 22:07 Dose: 40 mg Piperacillin Sod/Tazobactam (Sod 3.375 gm/ Sodium Chloride) 100 mls @ 100 mls/hr IVPB Q6 [facility]; Protocol Last Admin: 11/28/17 03:19 Dose: 100 mls/hr Morphine Sulfate (Morphine) 2 mg IVP Q4 PRN PRN Reason: Pain, moderate (4-7) Pantoprazole Sodium (Protonix Inj) 40 mg IVP DAILY [facility] Last Admin: 11/27/17 08:39 Dose: 40 mg - Labs Labs: 11/28/17 04:40 11/28/17 04:40 PT 11.5 Seconds (9.8-13.1) 11/26/17 14:10 INR 1.0 11/26/17 14:10 APTT 30.6 Seconds (25.6-37.1) 11/26/17 14:10 - Constitutional Appears: Well, Non-toxic, No Acute Distress - Head Exam Head Exam: ATRAUMATIC, NORMOCEPHALIC - ENT Exam ENT Exam: Mucous Membranes Moist, Normal Exam - Respiratory Exam Respiratory Exam: Clear to Ausculation Bilateral - Cardiovascular Exam Cardiovascular Exam: REGULAR RHYTHM, +S1, +S2 - GI/Abdominal Exam Additional comments: soft abdomen mild RUQ tendons negative rivas's sign no rigidity or guarding - Extremities Exam Additional comments: cap refill <3 seconds no LE edema appreciated DP and PT pulses palpable temp gradient warm to cool from proximal to distal - Neurological Exam Neurological Exam: Alert, Awake, Oriented x3 - Psychiatric Exam Psychiatric exam: Normal Affect, Normal Mood - Skin Skin Exam: Dry, Intact, Normal Color Assessment and Plan - Assessment and Plan (Free Text) Assessment: 76 y/o M with PMH of HTN (on enalapril) who presented to ED with RUQ pain and found to have cholecysitis. Plan: 1. Cholecystitis (Acute, symptomatic) -Surgery team is on case and recommendations have been appreciated. Will continue to fu recommendations. -Patient currently NPO - last meal 6:00PM 11/27 -MRCP (11/27) - moderate common bile duct and common hepatic duct dilation; no gross pancreatic findings; active cholecystitis suggested with large claculus at hte neck of gallbladder likely impacted; multiple small hepatic cysts suggested -Dr. Gutiérrez consulted for cardiac clearance as per surgery team - right bundle branch block appreciated on EKG, f/u echocardiogram before providing clearance (surgery team aware) -Echo (11/28) - left ventricle normal size, normal thickness, normal LV segmental wall motion, EF 65-70% -Continue pain medication regimen -Continue IV Zosyn 3.375gm Q6 - day #3 2. HTN ( Chronic) -Continue enalapril 5mg PO QD 3. DVT prophylaxis - lovenox 40 mg SC daily (on hold for surgery tomorrow) <Oliver Azar D - Last Filed: 11/28/17 10:58> Objective - Vital Signs/Intake and Output Vital Signs (last 24 hours): Temp Pulse Resp BP Pulse Ox 98.9 F 70 19 111/67 96 11/28/17 07:41 11/28/17 07:41 11/28/17 07:41 11/28/17 07:41 11/28/17 07:41 - Medications Medications: Current Medications Acetaminophen (Tylenol 325mg Tab) 650 mg PO Q6 PRN PRN Reason: Fever >100.4 F Last Admin: 11/27/17 16:20 Dose: 650 mg Enalapril Maleate (Vasotec) 5 mg PO DAILY [facility] Last Admin: 11/28/17 08:57 Dose: 5 mg Enoxaparin Sodium (Lovenox) 40 mg SC DAILY [facility]; Protocol Last Admin: 11/26/17 22:07 Dose: 40 mg Piperacillin Sod/Tazobactam (Sod 3.375 gm/ Sodium Chloride) 100 mls @ 100 mls/hr IVPB Q6 [facility]; Protocol Last Admin: 11/28/17 08:59 Dose: 100 mls/hr Metronidazole (Flagyl 500mg/100ml Ns) 100 mls @ 100 mls/hr IVPB Q8 [facility]; Protocol Morphine Sulfate (Morphine) 2 mg IVP Q4 PRN PRN Reason: Pain, moderate (4-7) Pantoprazole Sodium (Protonix Inj) 40 mg IVP DAILY [facility] Last Admin: 11/28/17 08:56 Dose: 40 mg - Labs Labs: 11/28/17 04:40 11/28/17 04:40 PT 11.5 Seconds (9.8-13.1) 11/26/17 14:10 INR 1.0 11/26/17 14:10 APTT 30.6 Seconds (25.6-37.1) 11/26/17 14:10 Attending/Attestation - Attestation I have personally seen and examined this patient.: Yes I have fully participated in the care of the patient.: Yes I have reviewed all pertinent clinical information, including history, physical exam and plan: Yes
--- NOTE | 2017-11-28 09:44 | CP.PCM.PN ---
<Laura Rhodes - Last Filed: 11/28/17 09:42> Subjective - Date & Time of Evaluation Date of Evaluation: 11/28/17 Time of Evaluation: 07:00 - Subjective Subjective: Surgery: Dr. Roche Pt seen and examined. No acute overnight events. States he feels ok but continues to have RUQ pain. Pt had some clears last night which he tolerated. Denies any other complaints at this time. Objective - Vital Signs/Intake and Output Vital Signs (last 24 hours): Temp Pulse Resp BP Pulse Ox 98.9 F 70 19 111/67 96 11/28/17 07:41 11/28/17 07:41 11/28/17 07:41 11/28/17 07:41 11/28/17 07:41 - Medications Medications: Current Medications Acetaminophen (Tylenol 325mg Tab) 650 mg PO Q6 PRN PRN Reason: Fever >100.4 F Last Admin: 11/27/17 16:20 Dose: 650 mg Enalapril Maleate (Vasotec) 5 mg PO DAILY [facility] Last Admin: 11/28/17 08:57 Dose: 5 mg Enoxaparin Sodium (Lovenox) 40 mg SC DAILY [facility]; Protocol Last Admin: 11/26/17 22:07 Dose: 40 mg Piperacillin Sod/Tazobactam (Sod 3.375 gm/ Sodium Chloride) 100 mls @ 100 mls/hr IVPB Q6 [facility]; Protocol Last Admin: 11/28/17 08:59 Dose: 100 mls/hr Morphine Sulfate (Morphine) 2 mg IVP Q4 PRN PRN Reason: Pain, moderate (4-7) Pantoprazole Sodium (Protonix Inj) 40 mg IVP DAILY [facility] Last Admin: 11/28/17 08:56 Dose: 40 mg - Labs Labs: 11/28/17 04:40 11/28/17 04:40 PT 11.5 Seconds (9.8-13.1) 11/26/17 14:10 INR 1.0 11/26/17 14:10 APTT 30.6 Seconds (25.6-37.1) 11/26/17 14:10 - Constitutional Appears: Well, No Acute Distress - Head Exam Head Exam: ATRAUMATIC, NORMOCEPHALIC - Eye Exam Eye Exam: Normal appearance - ENT Exam ENT Exam: Mucous Membranes Moist - Respiratory Exam Respiratory Exam: NORMAL BREATHING PATTERN - Cardiovascular Exam Cardiovascular Exam: RRR - GI/Abdominal Exam GI & Abdominal Exam: Guarding (voluntary in the RUQ ), Soft, Tenderness (RUQ & epigastric region ). absent: Distended, Rebound - Extremities Exam Extremities Exam: absent: Calf Tenderness - Neurological Exam Neurological Exam: Alert, Awake, Oriented x3 - Skin Skin Exam: Dry, Warm Assessment and Plan - Assessment and Plan (Free Text) Assessment: 77M with acute cholecystitis r/o choledocholithiasis Plan: - MRCP negative for CBD stone - cont IV ABX - will discuss plan for OR with Dr. Kaley Rhodes <Jed Roche - Last Filed: 11/28/17 10:07> Subjective - Date & Time of Evaluation Time of Evaluation: 09:45 - Subjective Subjective: Patient was seen and examined at the bedside. Reports some mild RUQ abdominal p ain. Agree with resident's note above. MRCP results noted. Objective - Vital Signs/Intake and Output Vital Signs (last 24 hours): Temp Pulse Resp BP Pulse Ox 98.9 F 70 19 111/67 96 11/28/17 07:41 11/28/17 07:41 11/28/17 07:41 11/28/17 07:41 11/28/17 07:41 - Medications Medications: Current Medications Acetaminophen (Tylenol 325mg Tab) 650 mg PO Q6 PRN PRN Reason: Fever >100.4 F Last Admin: 11/27/17 16:20 Dose: 650 mg Enalapril Maleate (Vasotec) 5 mg PO DAILY [facility] Last Admin: 11/28/17 08:57 Dose: 5 mg Enoxaparin Sodium (Lovenox) 40 mg SC DAILY [facility]; Protocol Last Admin: 11/26/17 22:07 Dose: 40 mg Piperacillin Sod/Tazobactam (Sod 3.375 gm/ Sodium Chloride) 100 mls @ 100 mls/hr IVPB Q6 [facility]; Protocol Last Admin: 11/28/17 08:59 Dose: 100 mls/hr Morphine Sulfate (Morphine) 2 mg IVP Q4 PRN PRN Reason: Pain, moderate (4-7) Pantoprazole Sodium (Protonix Inj) 40 mg IVP DAILY [facility] Last Admin: 11/28/17 08:56 Dose: 40 mg - Labs Labs: 11/28/17 04:40 11/28/17 04:40 PT 11.5 Seconds (9.8-13.1) 11/26/17 14:10 INR 1.0 11/26/17 14:10 APTT 30.6 Seconds (25.6-37.1) 11/26/17 14:10 - GI/Abdominal Exam Additional comments: soft, RUQ tenderness, ND, BS+, no rebound, no guarding, positive Yo's sign Assessment and Plan - Assessment and Plan (Free Text) Plan: - Clear liquid diet - pain control - IV fluids - Continue antibiotics - Repeat labs in am - Will follow
[2017-11-28] MEDS: metroNIDAZOLE 500mg/100ml NS 100 ML IVPB SCH ×2 (11:21→16:48)
[2017-11-28] MEDS ORDERED: Midazolam 2 MG/2 ML VIAL ONE (13:31)
--- NOTE | 2017-11-28 13:34 | CP.PCM.CON ---
History of Present Illness - History of Present Illness History of Present Illness: Infectious Disease consultation Note- asked to see this patient at the request of for leukocytosis and fever HPI- Patient is a pleasant 77 year old male with PMH of HTN who presented to the ED 2 days ago with c/o severe RUQ abdominal pain which has progressively worsened in the 2 days prior to admission . He also states he had some nausea at first but not now. He denies feeling feverish but he is noted to have fevers here. pt. was found to have acute cholecystitis along with elevated wbc , and LFTS and has been on IV zosyn as per primary team here. I'm asked to evaluate to help with antibiotic management. He is s/p percutaneous cholecystostomy tube earlier today BY IR for PMD: Dr. Thompson PMHx: HTN MEDS: Enalapril 5mg PO QD PSHx: Hemorrhoidectomy AllERGIES: NKDA FH: Non contributory SH: Denies cigarette, ETOH use, or illicit drugs Abd US: nonmobile calcified gallstone in neck of gallbladder; common bile duct 9 ml w/o common bile duct calculus. Abd CT: distended gallbladder with mod size gallstone in neck of gallbladder. Mild pericholecystic fluid is appreciated w/o significant wall thickening. Review of Systems - Review of Systems Review of Systems: ROS- + RUQ abd pain less now compared to admission, denies any nausea now, denies any vomiting, + fevers noted but pt. denies feeling feverish or any chills, denies any dysurea, denies any cough or sob, denies any chest pain, denies any diarrhea Past Patient History - Past Medical History & Family History Past Medical History?: Yes - Past Social History Smoking Status: Never Smoked Alcohol: None Drugs: Denies - CARDIAC Hx Hypertension: Yes - PULMONARY Hx Respiratory Disorders: No - NEUROLOGICAL Hx Neurological Disorder: No - HEENT Hx HEENT Problems: No - RENAL Hx Chronic Kidney Disease: No - ENDOCRINE/METABOLIC Hx Endocrine Disorders: No - HEMATOLOGICAL/ONCOLOGICAL Hx Blood Disorders: No - INTEGUMENTARY Hx Dermatological Problems: No - MUSCULOSKELETAL/RHEUMATOLOGICAL Hx Musculoskeletal Disorders: No Hx Falls: No - GASTROINTESTINAL Hx Gastrointestinal Disorders: No - GENITOURINARY/GYNECOLOGICAL Hx Genitourinary Disorders: No - PSYCHIATRIC Hx Psychophysiologic Disorder: No Hx Substance Use: No - SURGICAL HISTORY Hx Appendectomy: No Hx Cholecystectomy: No - ANESTHESIA Hx Anesthesia: Yes Meds Allergies/Adverse Reactions: Allergies Allergy/AdvReac Type Severity Reaction Status Date / Time No Known Allergies Allergy Verified 11/26/17 05:17 - Medications Medications: Current Medications Acetaminophen (Tylenol 325mg Tab) 650 mg PO Q6 PRN PRN Reason: Fever >100.4 F Last Admin: 11/27/17 16:20 Dose: 650 mg Enalapril Maleate (Vasotec) 5 mg PO DAILY [facility] Last Admin: 11/28/17 08:57 Dose: 5 mg Enoxaparin Sodium (Lovenox) 40 mg SC DAILY [facility]; Protocol Last Admin: 11/26/17 22:07 Dose: 40 mg Piperacillin Sod/Tazobactam (Sod 3.375 gm/ Sodium Chloride) 100 mls @ 100 mls/hr IVPB Q6 [facility]; Protocol Last Admin: 11/28/17 08:59 Dose: 100 mls/hr Metronidazole (Flagyl 500mg/100ml Ns) 100 mls @ 100 mls/hr IVPB Q8 [facility]; Protocol Last Admin: 11/28/17 11:21 Dose: 100 mls/hr Morphine Sulfate (Morphine) 2 mg IVP Q4 PRN PRN Reason: Pain, moderate (4-7) Pantoprazole Sodium (Protonix Inj) 40 mg IVP DAILY [facility] Last Admin: 11/28/17 08:56 Dose: 40 mg Physical Exam - Constitutional Appears: No Acute Distress - Head Exam Head Exam: ATRAUMATIC - Eye Exam Eye Exam: EOMI, PERRL - ENT Exam ENT Exam: Normal Oropharynx - Neck Exam Neck exam: Positive for: Full Rom - Respiratory Exam Respiratory Exam: Clear to Auscultation Bilateral, NORMAL BREATHING PATTERN - Cardiovascular Exam Cardiovascular Exam: RRR, +S1, +S2 - GI/Abdominal Exam Additional comments: slight distention, bowel sounds heard has right abd cholecystostomy drain tube with scant straw colored fluid in the bag + tenderness to palpation in right upper abdomen No guarding, No rebound - Extremities Exam Extremities exam: Positive for: normal inspection - Neurological Exam Neurological exam: Alert, Oriented x3 Results - Vital Signs Recent Vital Signs: Last Vital Signs Temp 98.9 F 11/28/17 07:41 Pulse 70 11/28/17 07:41 Resp 19 11/28/17 07:41 BP 111/67 11/28/17 07:41 Pulse Ox 96 11/28/17 07:41 - Labs Result Diagrams: 11/28/17 04:40 11/28/17 04:40 Labs: Laboratory Results - last 24 hr 11/28/17 11/28/17 04:40 04:40 WBC 20.1 H RBC 3.87 L Hgb 11.9 L Hct 35.2 MCV 91.0 MCH 30.7 MCHC 33.7 RDW 13.9 Plt Count 228 MPV 8.9 Neut % (Auto) 89.6 H Lymph % (Auto) 5.0 L Trinity % (Auto) 5.3 Eos % (Auto) 0.0 Baso % (Auto) 0.1 Neut # (Auto) 18.0 H Lymph # (Auto) 1.0 Trinity # (Auto) 1.1 H Eos # (Auto) 0.0 Baso # (Auto) 0.0 Sodium 135 Potassium 3.6 Chloride 104 Carbon Dioxide 24 Anion Gap 11 BUN 13 Creatinine 0.8 Est GFR ( Amer) > 60 Est GFR (Non-Af Amer) > 60 Random Glucose 113 H Calcium 7.9 L Magnesium 2.1 Total Bilirubin 3.2 H AST 78 H D ALT 384 H D Alkaline Phosphatase 165 H Total Protein 6.4 Albumin 3.1 L Globulin 3.3 Albumin/Globulin Ratio 0.9 L Laboratory Results - last 72 hr 11/26/17 11/26/17 11/26/17 06:36 06:36 07:24 WBC 15.9 H RBC 4.42 Hgb 13.5 Hct 40.3 MCV 91.1 MCH 30.6 MCHC 33.6 RDW 13.7 Plt Count 269 MPV 9.1 Neut % (Auto) 84.2 H Lymph % (Auto) 8.7 L Trinity % (Auto) 6.8 Eos % (Auto) 0.0 Baso % (Auto) 0.3 Neut # (Auto) 13.4 H Lymph # (Auto) 1.4 Trinity # (Auto) 1.1 H Eos # (Auto) 0.0 Baso # (Auto) 0.1 Neutrophils % (Manual) 86 H Band Neutrophils % 2 Lymphocytes % (Manual) 9 L Monocytes % (Manual) 3 Platelet Estimate Normal RBC Morphology Normal PT INR APTT Sodium 138 Potassium 3.8 Chloride 106 Carbon Dioxide 22 Anion Gap 14 BUN 16 Creatinine 0.6 L Est GFR ( Amer) > 60 Est GFR (Non-Af Amer) > 60 Random Glucose 114 H Calcium 9.1 Magnesium Total Bilirubin 0.7 AST 22 ALT 30 Alkaline Phosphatase 116 Total Protein 7.7 Albumin 4.1 Globulin 3.5 Albumin/Globulin Ratio 1.2 Lipase 42 Urine Color Yellow Urine Clarity Slighty-cloudy Urine pH 5.0 Ur Specific [place] 1.023 Urine Protein Negative Urine Glucose (UA) Neg Urine Ketones Negative Urine Blood Negative Urine Nitrate Negative Urine Bilirubin Negative Urine Urobilinogen 0.2-1.0 Ur Leukocyte Esterase Neg Urine RBC (Auto) 3 Urine Microscopic WBC < 1 Urine Bacteria Rare 11/26/17 11/27/17 11/27/17 14:10 06:00 06:00 WBC 17.8 H RBC 4.02 L Hgb 12.3 Hct 36.6 MCV 91.0 MCH 30.5 MCHC 33.5 RDW 14.0 Plt Count 240 MPV 8.8 Neut % (Auto) 86.8 H Lymph % (Auto) 6.2 L Trinity % (Auto) 6.9 Eos % (Auto) 0.0 Baso % (Auto) 0.1 Neut # (Auto) 15.5 H Lymph # (Auto) 1.1 Trinity # (Auto) 1.2 H Eos # (Auto) 0.0 Baso # (Auto) 0.0 Neutrophils % (Manual) Band Neutrophils % Lymphocytes % (Manual) Monocytes % (Manual) Platelet Estimate RBC Morphology PT 11.5 INR 1.0 APTT 30.6 Sodium 136 Potassium 3.5 L Chloride 101 Carbon Dioxide 28 Anion Gap 11 BUN 13 Creatinine 0.8 Est GFR ( Amer) > 60 Est GFR (Non-Af Amer) > 60 Random Glucose 110 Calcium 7.9 L Magnesium Total Bilirubin 2.8 H AST 298 H D ALT 699 H D Alkaline Phosphatase 186 H D Total Protein 6.3 Albumin 3.1 L D Globulin 3.2 Albumin/Globulin Ratio 1.0 Lipase Urine Color Urine Clarity Urine pH Ur Specific [place] Urine Protein Urine Glucose (UA) Urine Ketones Urine Blood Urine Nitrate Urine Bilirubin Urine Urobilinogen Ur Leukocyte Esterase Urine RBC (Auto) Urine Microscopic WBC Urine Bacteria 11/28/17 11/28/17 04:40 04:40 WBC 20.1 H RBC 3.87 L Hgb 11.9 L Hct 35.2 MCV 91.0 MCH 30.7 MCHC 33.7 RDW 13.9 Plt Count 228 MPV 8.9 Neut % (Auto) 89.6 H Lymph % (Auto) 5.0 L Trinity % (Auto) 5.3 Eos % (Auto) 0.0 Baso % (Auto) 0.1 Neut # (Auto) 18.0 H Lymph # (Auto) 1.0 Trinity # (Auto) 1.1 H Eos # (Auto) 0.0 Baso # (Auto) 0.0 Neutrophils % (Manual) Band Neutrophils % Lymphocytes % (Manual) Monocytes % (Manual) Platelet Estimate RBC Morphology PT INR APTT Sodium 135 Potassium 3.6 Chloride 104 Carbon Dioxide 24 Anion Gap 11 BUN 13 Creatinine 0.8 Est GFR ( Amer) > 60 Est GFR (Non-Af Amer) > 60 Random Glucose 113 H Calcium 7.9 L Magnesium 2.1 Total Bilirubin 3.2 H AST 78 H D ALT 384 H D Alkaline Phosphatase 165 H Total Protein 6.4 Albumin 3.1 L Globulin 3.3 Albumin/Globulin Ratio 0.9 L Lipase Urine Color Urine Clarity Urine pH Ur Specific [place] Urine Protein Urine Glucose (UA) Urine Ketones Urine Blood Urine Nitrate Urine Bilirubin Urine Urobilinogen Ur Leukocyte Esterase Urine RBC (Auto) Urine Microscopic WBC Urine Bacteria Microbiology 11/26/17 10:00 Blood Blood Culture - Preliminary NO GROWTH AFTER 48 HOURS Accession No. : [id number] Patient Name / ID : MARTIN MARQUEZ / [id number] Exam Date : 11/26/2017 08:38:53 ( Approved ) Study Comment : Sex / Age : M / 77Y Creator : Elizabet Colin MD Dictator : Elizabet Colin MD Field Sales Associate : Body Designer : Elizabet Colin MD Approver2 : Report Date : 11/26/2017 09:29:17 My Comment : Date of service: 11/26/2017 PROCEDURE: CT Abdomen and Pelvis with contrast HISTORY: RUQ pain, suprapubic pain COMPARISON: Ultrasound same day TECHNIQUE: Contrast dose: 95 milliliters Radiation dose: Total exam DLP = 299 mGy-cm. This CT exam was performed using one or more of the following dose reduction techniques: Automated exposure control, adjustment of the mA and/or kV according to patient size, and/or use of iterative reconstruction technique. FINDINGS: LOWER THORAX: Bilateral lower lobe subsegmental atelectasis and scarring is identified. No effusion is seen. Visualized esophagus shows evidence of small hiatal hernia. Visualized stomach shows no evidence of abnormal wall thickening. Duodenum is within normal limits. LIVER: A few small low-density probable liver cysts are appreciated in the liver. No appreciable solid enhancing mass is noted in the liver. There is some subtle intrahepatic dilatation identified. Common bile duct measures up to 9 up millimeters but appears to taper distally. Pancreatic duct is top-normal in size. GALLBLADDER AND BILE DUCTS: Gallbladder is mildly distended. In addition there is a 2.3 centimeter gallstone within the neck of the gallbladder. There appears to be mild pericholecystic fluid adjacent to the fundus of the gallbladder. Finding is suspicious for cholecystitis in the correct clinical setting although does not appear to be significant gallbladder wall thickening. PANCREAS: Pancreas is normal in outline and density. Pancreatic duct is top-normal in size. No peripancreatic inflammatory changes are seen. SPLEEN: Unremarkable. ADRENALS: Unremarkable. No mass. KIDNEYS AND URETERS: No hydronephrosis. No perinephric changes. No solid renal masses noted. No renal calculi identified. Kidneys are normal in size. VASCULATURE: No evidence of aneurysm. BOWEL: Chronic diverticular changes are noted. No pericolonic inflammatory change or bowel wall thickening is noted. No small bowel obstruction is noted. APPENDIX: Within normal limits. PERITONEUM: No ascites is seen elsewhere. No free intraperitoneal air is noted. LYMPH NODES: Unremarkable. No enlarged lymph nodes. BLADDER: Bladder is distended more than likely secondary to enlarged prostate gland. REPRODUCTIVE: Prostate gland is noted to be enlarged with heterogeneous density and calcification. BONES: No acute fracture. OTHER FINDINGS: None. IMPRESSION: Distended gallbladder with moderate size gallstone in the neck of the gallbladder. Mild pericholecystic fluid is appreciated without significant wall thickening. Cholecystitis is the diagnosis of exclusion. Nonspecific mild common bile duct and intrahepatic ductal dilatation although no common bile duct stone or ampullary abnormality is clearly seen. A few small liver cysts are noted. Accession No. : [id number] Patient Name / ID : MARTIN MARQUEZ / [id number] Exam Date : 11/26/2017 14:19:36 ( Approved ) Study Comment : Sex / Age : M / 77Y Creator : Elizabet Colin MD Dictator : Elizabet Colin MD Field Sales Associate : Body Designer : Elizabet Colin MD Approver2 : Report Date : 11/26/2017 15:01:22 My Comment : Date of service: 11/26/2017 PROCEDURE: CHEST RADIOGRAPH, 1 VIEW HISTORY: clearance COMPARISON: None available. FINDINGS: LUNGS: Single frontal view of the chest was performed. Mild bibasilar volume loss is suspected with some patchy interstitial changes noted at the lung bases. PLEURA: No pneumothorax or pleural fluid seen. CARDIOVASCULAR: Heart is mildly enlarged. No hilar enlargement is seen. OSSEOUS STRUCTURES: No significant abnormalities. VISUALIZED UPPER ABDOMEN: Normal. OTHER FINDINGS: None. IMPRESSION: Mild subsegmental atelectasis or volume loss at the lung bases. No appreciable CHF. Accession No. : [id number] Patient Name / ID : MARTIN MARQUEZ / [id number] Exam Date : 11/27/2017 10:12:58 ( Approved ) Study Comment : Sex / Age : M / 77Y Creator : Master Storey MD Dictator : Master Storey MD Field Sales Associate : Body Designer : Master Storey MD Approver2 : Report Date : 11/27/2017 15:30:27 My Comment : Date of service: 11/27/2017 PROCEDURE: Magnetic Resonance Cholangiopancreatography HISTORY: COMPARISON: Abdomen and pelvis CT and abdomen ultrasound limited 11/26/2017 as well. TECHNIQUE: Multiplanar, multisequence MR images of the abdomen were obtained, including heavily T2 weighted MRCP images of the biliary system. Rotating maximum intensity projection images of the biliary system were generated. FINDINGS: MRCP: Although there is no choledocholithiasis appreciable, the common bile duct measures 9.6 mm proximally, 9.4 mm proximally and only 4 mm distally. Common hepatic duct measures 8.0 cm. Remaining intrahepatic biliary ducts appear n ormal in caliber although there is a probable 1.4 cm choledochocele at the central liver versus adjacent hepatic cyst. A 9 mm cyst is seen in the right lobe liver posteromedially. There are a few scattered hyperintensities on long TR weighted sequences identified at the medial lateral left lobe of the liver measuring under 1 cm which are too small to characterize but statistically likely reflects cysts. LIVER: As above. GALLBLADDER: Gallbladder is rather distended with thick wall measuring up to 4 mm associated with pericholecystic fluid collection suggestive of cholecystitis. Sludge is identified layering in the dependent portion large calculus possibly impacted at the neck measuring 2.3 x 2.7 cm. Additional smaller calculi are not excluded. This is not felt to be directly impacting the proximal common bile duct necessarily. This would not explain mid common bile duct dilatation. SPLEEN: Unremarkable. PANCREAS: Unremarkable. ADRENALS: Unremarkable. KIDNEYS: Unremarkable. AORTA: No aneurysm. ASCITES: None. OTHER FINDINGS: None. IMPRESSION: Moderate common bile duct dilatation as well as common hepatic duct without further intrahepatic biliary dilatation appreciable. No choledocholithiasis. No gross pancreatic findings on this noncontrast MR examination. Active cholecystitis again suggested with large calculus at the neck of the gallbladder but likely impacted as discussed above. Multiple small hepatic cysts suggested or and possible choledochocele is seen near the central liver. Please see discussion above. Assessment & Plan (1) Cholecystitis Status: Acute (2) Leukocytosis Status: Acute (3) Fever Status: Acute - Assessment and Plan (Free Text) Assessment: A/P- 77 year old male admitted with RUQ pain found to have cholecystitis with fever and leukocytosis. s/p cholecystostomy tube placment today by IR. febrile high leukocytosis with left shift Blood cx- neg x 1 Plan- d/c zosyn. start IV meropnem 1 gram [id number] for broader coverage. advise to continue with IV flagyl that was started today by primary team. check 2 more blood cx. await cx of fluid obtained by IR. All labs and imaging and chart notes reviewed, Thank you for allowing me to take part in the care of this patient. All above also d/w patient and he verbalizes full understanding of all above and agrees with above plan of care.
[2017-11-28] MEDS ORDERED: Iodixanol 320 MG/ML 100 ML BOTTLE IV ONE (13:36)
[2017-11-28] MEDS ORDERED: Lidocaine 1% 5ml Abboject ONE (13:49)
--- NOTE | 2017-11-28 14:13 | PCM.SURG1 ---
Surgeon's Initial Post Op Note - Surgeon's Notes Surgeon: Lashell Advisory Application Developer: None Type of Anesthesia: Local Pre-Operative Diagnosis: Acute cholecystitis Operative Findings: Acute cholecystitis Post-Operative Diagnosis: Acute cholecystitis Operation Performed: US and flouroscopy guided cholecycstomy tube placement. Specimen/Specimens Removed: 10cc of cloudy bile aspirated. Estimated Blood Loss: EBL {In ML}: 1 Date of Surgery/Procedure: 11/28/17 Time of Surgery/Procedure: 14:10
--- NOTE | 2017-11-28 15:15 | VASCULAR ---
Cholecystostomy tube placement. History: Acute cholecystitis. Increasing bilirubin. Comparison: Recent CT scan ultrasound of the abdomen. Procedure and findings: Informed consent was obtained from the patient after discussing relative risks and benefits. Qualified spanish interpreter/translator was used to discussed the procedure and the relative risks and benefits with the patient. Initial ultrasound evaluation of the right upper quadrant demonstrated a dilated gallbladder with pericholecystic fluid and inflamed gallbladder wall. The right upper quadrant was prepped and draped in the usual sterile techniques. 1% buffered lidocaine was used to anesthetize the percutaneous access site and subcutaneous tissue leading up to the liver edge. Using ultrasound guidance, a 5 Czech centesis catheter was then used to access the gallbladder through a transhepatic route. Permanent ultrasound images were stored. The inner stylet was removed and a stiff guidewire was introduced into the gallbladder. Permanent ultrasound image was obtained. After fascial dilatations, an 8 Czech all-purpose drainage catheter was inserted into the gallbladder. Final ultrasound image of the locking loop within the gallbladder lumen was obtained. Small amount of contrast was then injected into the catheter demonstrating opacification of the lumen of the gallbladder. Catheter was sutured to the skin and a sterile dressing was applied. The catheter was then attached to a drainage bag. Patient tolerated the procedure well without any adverse events. Impression: Ultrasound and fluoroscopically guided placement of cholecystostomy tube. Ultrasound of fluoroscopic images obtained in stored.
[2017-11-28] MEDS: Meropenem 1 GM in Sodium Chloride 0.9% 100 ML IVPB SCH (20:12)
[2017-11-29] MEDS: Meropenem 1 GM in Sodium Chloride 0.9% 100 ML IVPB SCH ×3 (00:13→16:20)
[2017-11-29] MEDS: metroNIDAZOLE 500mg/100ml NS 100 ML IVPB SCH ×3 (00:13→16:20)
--- NOTE | 2017-11-29 03:31 | CON ---
DATE: 11/28/2017 REFERRING PHYSICIAN: Rio Potter MD. REASON FOR CONSULTATION: Abdominal pain and elevated LFTs. HISTORY OF PRESENT ILLNESS: This is a 77 year old man with a history of hypertension, right upper quadrant pain and discomfort for which he states he had this for over a month. Basically, it is epigastric in nature and radiation into the back and right upper quadrant. Denies fever, chills, no nausea or vomiting. At this point, the patient was seen in PACU. Lying in bed comfortable, in no apparent distress. PAST MEDICAL HISTORY: As above. PAST SURGICAL HISTORY: As above. MEDICATIONS: Have been reviewed. REVIEW OF SYSTEMS: All other systems have been reviewed and negative apart from the HPI. PHYSICAL EXAMINATION: GENERAL: A pleasant elderly appearing man, lying in bed comfortable, in no apparent distress. VITAL SIGNS: Here in the hospital are grossly unremarkable. HEENT: Head is normocephalic and atraumatic. Eyes: Pupils are equally reactive to light bilaterally. There is some conjunctival icterus, no pallor. NECK: Supple. Normal range of motion. ABDOMEN: Soft. Some discomfort in the left upper quadrant. No rebound. No guarding. RECTAL: Deferred. EXTREMITIES: Pulses felt bilaterally. SKIN: Warm, dry, and intact. NEUROLOGIC: A and O x3. LABORATORY DATA: All labs and radiology have been reviewed. WBC 13.1, up from 15.9; hemoglobin is 11.9. Total bilirubin is 2.3 elevated. AST and ALT 78 and 304, down from previous , and alkaline phosphatase is . Albumin 3.1. CAT scan of the abdomen and pelvis shows multiple stones in the neck of the gallbladder with some thick fluid and some edema. Ultrasound of the gallbladder confirmed the same. An MRCP demonstrated no CBD stone, but there is a stone in the neck of the gallbladder. ASSESSMENT AND PLAN: This is a 77-year-old man with abdominal pain, elevated liver function tests and white count. This is more than likely simply cholecystitis with possible Mirizzi syndrome. From gastrointestinal standpoint, no need for any endoscopic retrograde cholangiopancreatography at this point. Recommend laparoscopic cholecystectomy. If not, then Radiology should be involved. Antibiotics for now. N.p.o. Pain control as needed. Thank you for the consult. Percy Glaser MD/ PhD cc: Rio Potter MD
[2017-11-29 06:18] LABS: BASO % 0.3 % (0.0-2.0); EOS % 0.3 % (0.0-4.0); HEMOGLOBIN 11.3 g/dL (12.0-18.0); LYMPH # 0.9 K/uL (1.0-4.3); LYMPH % 7.9 % (20.0-40.0); MEAN CELL VOLUME 92.1 fl (80.0-94.0); MEAN CORPUSCULAR HEMOGLOBIN 30.8 pg (27.0-31.0); MEAN CORPUSCULAR HGB CONC 33.5 g/dL (33.0-37.0); MEAN PLATELET VOLUME 8.5 fl (7.2-11.7); MONO % 8.5 % (0.0-10.0); NEUT # 9.5 K/uL (1.8-7.0); RBC 3.65 Mil/uL (4.40-5.90); RED CELL DISTRIBUTION WIDTH 14.1 % (11.5-14.5); WHITE BLOOD COUNT 11.4 K/uL (4.8-10.8)
[2017-11-29 06:20] LABS: ALB/GLOB RATIO 0.9 (1.0-2.1); ALBUMIN 2.9 g/dL (3.5-5.0); ALT/SGPT 220 U/L (21-72); AST/SGOT 30 U/L (17-59); BLOOD UREA NITROGEN 13 mg/dl (9-20); GFR NON-AFRICAN AMERICAN > 60
[2017-11-29 08:01] VITALS: O2SAT 97
--- NOTE | 2017-11-29 10:46 | CP.PCM.PN ---
Subjective - Date & Time of Evaluation Date of Evaluation: 11/29/17 Time of Evaluation: 10:44 - Subjective Subjective: Pt seen and examined this AM. He reports feeling hungry. (-) N/V. Pt only had one low grade fever ~ 20 mins post op, since then has been afebrile. Labs improving. Labs and vitals noted. WBC, T bili and LFTs improving PE Gen: Pt laying in bed in NAD Skin: warm and dry (-) jaundice Cardio: s1s2 RRR Lungs: CTA bilaterally Abd: Soft, (+) RUQ tenderness, (+) cholecystostomy tube with ~25 ml of david colored output in bag. Extr: (-) calf tenderness bilaterally A/P Cholecystitis POD 1 s/p cholecystestomy tube, CBD Dialatation Advance diet to low fat Monitor labs Monitor vitals Pt will need cholecystectomy ? inpt vs ?outpt, unsure at this time as pt's LFTs, although improved, remains elevated. Monitor output from cholecystostomy tube Objective - Vital Signs/Intake and Output Vital Signs (last 24 hours): Temp Pulse Resp BP Pulse Ox 98.5 F 58 L 19 112/64 97 11/29/17 08:00 11/29/17 08:00 11/29/17 08:00 11/29/17 08:00 11/29/17 08:00 - Medications Medications: Current Medications Acetaminophen (Tylenol 325mg Tab) 650 mg PO Q6 PRN PRN Reason: Fever >100.4 F Last Admin: 11/27/17 16:20 Dose: 650 mg Enalapril Maleate (Vasotec) 5 mg PO DAILY [facility] Last Admin: 11/29/17 09:25 Dose: 5 mg Enoxaparin Sodium (Lovenox) 40 mg SC DAILY [facility]; Protocol Last Admin: 11/26/17 22:07 Dose: 40 mg Metronidazole (Flagyl 500mg/100ml Ns) 100 mls @ 100 mls/hr IVPB Q8 [facility]; Protocol Last Admin: 11/29/17 10:35 Dose: 100 mls/hr Meropenem 1 gm/ Sodium (Chloride) 100 mls @ 100 mls/hr IVPB Q8 [facility]; Protocol Last Admin: 11/29/17 09:24 Dose: 100 mls/hr Morphine Sulfate (Morphine) 2 mg IVP Q4 PRN PRN Reason: Pain, moderate (4-7) Last Admin: 11/28/17 18:33 Dose: 2 mg Pantoprazole Sodium (Protonix Inj) 40 mg IVP DAILY [facility] Last Admin: 11/29/17 09:24 Dose: 40 mg - Labs Labs: 11/29/17 05:40 11/29/17 05:40 PT 11.5 Seconds (9.8-13.1) 11/26/17 14:10 INR 1.0 11/26/17 14:10 APTT 30.6 Seconds (25.6-37.1) 11/26/17 14:10
--- NOTE | 2017-11-29 11:26 | CP.PCM.PN ---
Subjective - Date & Time of Evaluation Date of Evaluation: 11/29/17 Time of Evaluation: 11:23 - Subjective Subjective: 77 yo male seen and evaluated bedside resting comfortably. Patient had cholecytectomy tube placed yesterday. Bag seen with brown fluid today. Dressing seen clean and intact today. Tolerated breakfast this morning and has voided successfully. Has no acute complaints today. Denies N/V/F/C/SOB/CP today and has mild pain at the RUQ of the abdomen. Objective - Vital Signs/Intake and Output Vital Signs (last 24 hours): Temp Pulse Resp BP Pulse Ox 98.5 F 58 L 19 112/64 97 11/29/17 08:00 11/29/17 08:00 11/29/17 08:00 11/29/17 08:00 11/29/17 08:00 - Medications Medications: Current Medications Acetaminophen (Tylenol 325mg Tab) 650 mg PO Q6 PRN PRN Reason: Fever >100.4 F Last Admin: 11/27/17 16:20 Dose: 650 mg Enalapril Maleate (Vasotec) 5 mg PO DAILY [facility] Last Admin: 11/29/17 09:25 Dose: 5 mg Enoxaparin Sodium (Lovenox) 40 mg SC DAILY [facility]; Protocol Last Admin: 11/26/17 22:07 Dose: 40 mg Metronidazole (Flagyl 500mg/100ml Ns) 100 mls @ 100 mls/hr IVPB Q8 [facility]; Protocol Last Admin: 11/29/17 10:35 Dose: 100 mls/hr Meropenem 1 gm/ Sodium (Chloride) 100 mls @ 100 mls/hr IVPB Q8 [facility]; Protocol Last Admin: 11/29/17 09:24 Dose: 100 mls/hr Morphine Sulfate (Morphine) 2 mg IVP Q4 PRN PRN Reason: Pain, moderate (4-7) Last Admin: 11/28/17 18:33 Dose: 2 mg Pantoprazole Sodium (Protonix Inj) 40 mg IVP DAILY [facility] Last Admin: 11/29/17 09:24 Dose: 40 mg - Labs Labs: 11/29/17 05:40 11/29/17 05:40 PT 11.5 Seconds (9.8-13.1) 11/26/17 14:10 INR 1.0 11/26/17 14:10 APTT 30.6 Seconds (25.6-37.1) 11/26/17 14:10 - Constitutional Appears: Well, Non-toxic, No Acute Distress - Head Exam Head Exam: ATRAUMATIC, NORMOCEPHALIC - ENT Exam ENT Exam: Mucous Membranes Moist - Neck Exam Neck Exam: Normal Inspection - Respiratory Exam Respiratory Exam: Clear to Ausculation Bilateral, NORMAL BREATHING PATTERN - Cardiovascular Exam Cardiovascular Exam: REGULAR RHYTHM, +S1, +S2 - GI/Abdominal Exam Additional comments: soft abdomen mild RUQ tendons negative rivas's sign no rigidity or guarding dressing clean and intact for site of cholecystectomy tube bag noted to contain brown fluid - Extremities Exam Extremities Exam: Normal Capillary Refill Additional comments: cap refill <3 seconds no LE edema appreciated DP and PT pulses palpable temp gradient warm to cool from proximal to distal - Neurological Exam Neurological Exam: Alert, Awake, Oriented x3 - Psychiatric Exam Psychiatric exam: Normal Affect, Normal Mood - Skin Skin Exam: Dry, Normal Color, Warm Assessment and Plan - Assessment and Plan (Free Text) Assessment: 76 y/o M with PMH of HTN (on enalapril) who presented to ED with RUQ pain and found to have cholecysitis. Plan: 1. Cholecystitis (Acute, symptomatic) -Surgery team is on case and recommendations have been appreciated - cholecystectomy tube inserted 11/28 - dressing clean and intact - continue to monitor drainage in bag - brown today. -Patient tolerated breakfast -MRCP (11/27) - moderate common bile duct and common hepatic duct dilation; no gross pancreatic findings; active cholecystitis suggested with large claculus at hte neck of gallbladder likely impacted; multiple small hepatic cysts suggested -Dr. Gutiérrez consulted for cardiac clearance as per surgery team - right bundle branch block appreciated on EKG, f/u echocardiogram before providing clearance (surgery team aware) -Echo (11/28) - left ventricle normal size, normal thickness, normal LV segmental wall motion, EF 65-70% -Continue pain medication regimen -ID consulted - recs appreciated - zosyn d/c 11/28, meropenem day #1 11/29 - continue flagyl day #2 11/29 -patient will need at least 8 days of IV antibiotics 2. HTN ( Chronic) -Continue enalapril 5mg PO QD 3. DVT prophylaxis - lovenox 40 mg SC daily
--- NOTE | 2017-11-29 13:54 | CP.PCM.DIS ---
Addendum entered and electronically signed by Lane Cosme DPM 11/30/17 11:56: Patient seen and evaluated at bedside today. Discharge plan to TCU pending approval. Will place order for d/c once approval determined. Patient resting comfortably today, aware of plan. No pain in abdomen, sitting bedside with no new acute issues. Denies N/V/F/C/SOB/CP. Exam: Cardio exam - regular rhythm +S1 +S2 Respiratory - lungs clear to auscultation, normal breathing pattern Abdominal exam - soft, mild pain to RUQ, bandage clean and intact to cholecystomy tube, brown liquid seen in bag Neuro - AAOx3 and NAD Skin - warm, intact, normal color A/P: 76 y/o M with PMH of HTN (on enalapril) who presented to ED with RUQ pain and found to have cholecysitis 1. Cholecystitis (Acute, symptomatic) -Surgery team is on case and recommendations have been appreciated - cholecystectomy tube inserted 11/28 - dressing clean and intact - continue to monitor drainage in bag - brown today. -Patient tolerated breakfast -MRCP (11/27) - moderate common bile duct and common hepatic duct dilation; no gross pancreatic findings; active cholecystitis suggested with large claculus at hte neck of gallbladder likely impacted; multiple small hepatic cysts suggested -Dr. Gutiérrez consulted for cardiac clearance as per surgery team - right bundle branch block appreciated on EKG, f/u echocardiogram before providing clearance (surgery team aware) -Echo (11/28) - left ventricle normal size, normal thickness, normal LV segmental wall motion, EF 65-70% -Continue pain medication regimen -ID consulted - recs appreciated - zosyn d/c 11/28, meropenem day #2 11/29 - continue flagyl day #3 11/29 -patient will need at least 8 days of IV antibiotics 2. HTN ( Chronic) -Continue enalapril 5mg PO QD 3. DVT prophylaxis - lovenox 40 mg SC daily Original Note: <Lane Cosme - Last Filed: 11/29/17 13:52> Provider - Provider Date of Admission: 11/26/17 09:36 Attending physician: Oliver Azar MD Primary care physician: Dr. Thompson Consults: Cardiology - Dr. Gutiérrez Infectious disease - Dr. Davidson General surgery - Dr. Potter Gastroenterology - Dr. Glaser Time Spent in preparation of Discharge (in minutes): 30 Diagnosis - Discharge Diagnosis (1) Cholecystitis Status: Acute Hospital Course - Lab Results Lab Results: Micro Results 11/26/17 10:00 Blood Blood Culture - Preliminary NO GROWTH AFTER 3 DAYS 11/28/17 14:40 Gallbladder Gram Stain - Final 11/28/17 14:40 Gallbladder Wound Culture - Preliminary Gram Negative Aric Most Recent Lab Values WBC 11.4 K/uL (4.8-10.8) H 11/29/17 05:40 RBC 3.65 Mil/uL (4.40-5.90) L 11/29/17 05:40 Hgb 11.3 g/dL (12.0-18.0) L 11/29/17 05:40 Hct 33.7 % (35.0-51.0) L 11/29/17 05:40 MCV 92.1 fl (80.0-94.0) 11/29/17 05:40 MCH 30.8 pg (27.0-31.0) 11/29/17 05:40 MCHC 33.5 g/dL (33.0-37.0) 11/29/17 05:40 RDW 14.1 % (11.5-14.5) 11/29/17 05:40 Plt Count 252 K/uL (130-400) 11/29/17 05:40 MPV 8.5 fl (7.2-11.7) 11/29/17 05:40 Neut % (Auto) 83.0 % (50.0-75.0) H 11/29/17 05:40 Lymph % (Auto) 7.9 % (20.0-40.0) L 11/29/17 05:40 [place] % (Auto) 8.5 % (0.0-10.0) 11/29/17 05:40 Eos % (Auto) 0.3 % (0.0-4.0) 11/29/17 05:40 Baso % (Auto) 0.3 % (0.0-2.0) 11/29/17 05:40 Neut # (Auto) 9.5 K/uL (1.8-7.0) H 11/29/17 05:40 Lymph # (Auto) 0.9 K/uL (1.0-4.3) L 11/29/17 05:40 [place] # (Auto) 1.0 K/uL (0.0-0.8) H 11/29/17 05:40 Eos # (Auto) 0.0 K/uL (0.0-0.7) 11/29/17 05:40 Baso # (Auto) 0.0 K/uL (0.0-0.2) 11/29/17 05:40 Neutrophils % (Manual) 86 % (42-75) H 11/26/17 06:36 Band Neutrophils % 2 % (0-2) 11/26/17 06:36 Lymphocytes % (Manual) 9 % (20-50) L 11/26/17 06:36 Monocytes % (Manual) 3 % (0-10) 11/26/17 06:36 Platelet Estimate Normal (NORMAL) 11/26/17 06:36 RBC Morphology Normal (NORMAL) 11/26/17 06:36 PT 11.5 Seconds (9.8-13.1) 11/26/17 14:10 INR 1.0 11/26/17 14:10 APTT 30.6 Seconds (25.6-37.1) 11/26/17 14:10 Sodium 137 mmol/l (132-148) 11/29/17 05:40 Potassium 3.9 MMOL/L (3.6-5.0) 11/29/17 05:40 Chloride 105 mmol/L (98-107) 11/29/17 05:40 Carbon Dioxide 25 mmol/L (22-30) 11/29/17 05:40 Anion Gap 11 (10-20) 11/29/17 05:40 BUN 13 mg/dl (9-20) 11/29/17 05:40 Creatinine 0.7 mg/dl (0.8-1.5) L 11/29/17 05:40 Est GFR ( Amer) > 60 11/29/17 05:40 Est GFR (Non-Af Amer) > 60 11/29/17 05:40 Random Glucose 106 mg/dL (75-110) 11/29/17 05:40 Calcium 8.0 mg/dL (8.4-10.2) L 11/29/17 05:40 Phosphorus 2.3 mg/dl (2.5-4.5) L 11/29/17 05:40 Magnesium 2.3 MG/DL (1.6-2.3) 11/29/17 05:40 Total Bilirubin 1.6 mg/dl (0.2-1.3) H 11/29/17 05:40 AST 30 U/L (17-59) 11/29/17 05:40 ALT 220 U/L (21-72) H D 11/29/17 05:40 Alkaline Phosphatase 138 U/L (38-126) H 11/29/17 05:40 Total Protein 6.1 G/DL (6.3-8.2) L 11/29/17 05:40 Albumin 2.9 g/dL (3.5-5.0) L 11/29/17 05:40 Globulin 3.1 gm/dL (2.2-3.9) 11/29/17 05:40 Albumin/Globulin Ratio 0.9 (1.0-2.1) L 11/29/17 05:40 Lipase 42 U/L (23-300) 11/26/17 06:36 Urine Color Yellow (YELLOW) 11/26/17 07:24 Urine Clarity Slighty-cloudy (Clear) 11/26/17 07:24 Urine pH 5.0 (5.0-8.0) 11/26/17 07:24 Ur Specific [place] 1.023 (1.003-1.030) 11/26/17 07:24 Urine Protein Negative mg/dL (NEGATIVE) 11/26/17 07:24 Urine Glucose (UA) Neg mg/dL (Normal) 11/26/17 07:24 Urine Ketones Negative mg/dL (NEGATIVE) 11/26/17 07:24 Urine Blood Negative (NEGATIVE) 11/26/17 07:24 Urine Nitrate Negative (NEGATIVE) 11/26/17 07:24 Urine Bilirubin Negative (NEGATIVE) 11/26/17 07:24 Urine Urobilinogen 0.2-1.0 mg/dL (0.2-1.0) 11/26/17 07:24 Ur Leukocyte Esterase Neg Angelic/uL (Negative) 11/26/17 07:24 Urine RBC (Auto) 3 /hpf (0-3) 11/26/17 07:24 Urine Microscopic WBC < 1 /hpf (0-5) 11/26/17 07:24 Urine Bacteria Rare (<OCC) 11/26/17 07:24 - Hospital Course Hospital Course: 77 yo male patient presented to the ED 3 days ago with RUQ pain and was found to have acute cholecystitis. The general surgery team and Dr. Potter were consulted and a plan for cholecystectomy was discussed. Dr. Gutiérrez was consulted as a right bundle branch block was found on EKG and an echo was ordered. Once echo showed no siginficant findings patient was cleared by cardiology. MRCP was ordered and read common bile duct and common hepatic duct dilation, no gross pancreatic findings, active cholecystitis suggested with large calculus at the neck of gallbladder likely impacted; multiple hepatic cysts suggested. ID was consulted and recommended to d/c zosyn and start meropenem and continue flagyl. Stated patient would need at least 8 days of IV antibiotics. A cholecystectomy tube was placed by surgery to cool down patient prior to surgery. Patient is afebrile today but does have elevated WBC. Patient to be discharged to TCU today. 1. Cholecystitis (Acute, symptomatic) -Surgery team is on case and recommendations have been appreciated - cholecystectomy tube inserted 11/28 - dressing clean and intact - continue to monitor drainage in bag - brown today. -Patient tolerated breakfast -MRCP (11/27) - moderate common bile duct and common hepatic duct dilation; no gross pancreatic findings; active cholecystitis suggested with large claculus at hte neck of gallbladder likely impacted; multiple small hepatic cysts suggested -Dr. Gutiérrez consulted for cardiac clearance as per surgery team - right bundle branch block appreciated on EKG, f/u echocardiogram before providing clearance (surgery team aware) -Echo (11/28) - left ventricle normal size, normal thickness, normal LV segmental wall motion, EF 65-70% -Continue pain medication regimen -ID consulted - recs appreciated - zosyn d/c 11/28, meropenem day #1 11/29 - continue flagyl day #2 11/29 -patient will need at least 8 days of IV antibiotics 2. HTN ( Chronic) -Continue enalapril 5mg PO QD 3. DVT prophylaxis - lovenox 40 mg SC daily - Date & Time of H&P Date of H&P: 11/29/17 Time of H&P: 13:55 Discharge Exam - Head Exam Head Exam: ATRAUMATIC, NORMOCEPHALIC - ENT Exam ENT Exam: Mucous Membranes Moist - Neck Exam Neck exam: Normal Inspection - Respiratory Exam Respiratory Exam: NORMAL BREATHING PATTERN - Cardiovascular Exam Cardiovascular Exam: REGULAR RHYTHM, +S1, +S2 - GI/Abdominal Exam Additional comments: soft abdomen mild RUQ tendons negative rivas's sign no rigidity or guarding dressing clean and intact for site of cholecystectomy tube bag noted to contain brown fluid - Extremities Exam Extremities exam: normal capillary refill, normal inspection - Neurological Exam Neurological exam: Alert, Oriented x3 - Psychiatric Exam Psychiatric exam: Normal Affect, Normal Mood - Skin Skin Exam: Dry, Intact, Normal Color, Warm Discharge Plan - Follow Up Plan Condition: STABLE Disposition: REHAB FACILITY/REHAB UNIT Instructions: Cholecystitis (DC), Cholecystitis (GEN) Additional Instructions: follow up with primary MD Referrals: Rio Potter MD [Staff Provider] - Mario Gutiérrez MD [Staff Provider] - <Abilio Cross - Last Filed: 11/29/17 18:37> Provider - Provider Date of Admission: 11/26/17 09:36 Attending physician: Oliver Azar MD Time Spent in preparation of Discharge (in minutes): 35 Hospital Course - Lab Results Lab Results: Micro Results 11/26/17 10:00 Blood Blood Culture - Preliminary NO GROWTH AFTER 3 DAYS 11/28/17 14:40 Gallbladder Gram Stain - Final 11/28/17 14:40 Gallbladder Wound Culture - Preliminary Gram Negative Aric Most Recent Lab Values WBC 11.4 K/uL (4.8-10.8) H 11/29/17 05:40 RBC 3.65 Mil/uL (4.40-5.90) L 11/29/17 05:40 Hgb 11.3 g/dL (12.0-18.0) L 11/29/17 05:40 Hct 33.7 % (35.0-51.0) L 11/29/17 05:40 MCV 92.1 fl (80.0-94.0) 11/29/17 05:40 MCH 30.8 pg (27.0-31.0) 11/29/17 05:40 MCHC 33.5 g/dL (33.0-37.0) 11/29/17 05:40 RDW 14.1 % (11.5-14.5) 11/29/17 05:40 Plt Count 252 K/uL (130-400) 11/29/17 05:40 MPV 8.5 fl (7.2-11.7) 11/29/17 05:40 Neut % (Auto) 83.0 % (50.0-75.0) H 11/29/17 05:40 Lymph % (Auto) 7.9 % (20.0-40.0) L 11/29/17 05:40 [place] % (Auto) 8.5 % (0.0-10.0) 11/29/17 05:40 Eos % (Auto) 0.3 % (0.0-4.0) 11/29/17 05:40 Baso % (Auto) 0.3 % (0.0-2.0) 11/29/17 05:40 Neut # (Auto) 9.5 K/uL (1.8-7.0) H 11/29/17 05:40 Lymph # (Auto) 0.9 K/uL (1.0-4.3) L 11/29/17 05:40 [place] # (Auto) 1.0 K/uL (0.0-0.8) H 11/29/17 05:40 Eos # (Auto) 0.0 K/uL (0.0-0.7) 11/29/17 05:40 Baso # (Auto) 0.0 K/uL (0.0-0.2) 11/29/17 05:40 Neutrophils % (Manual) 86 % (42-75) H 11/26/17 06:36 Band Neutrophils % 2 % (0-2) 11/26/17 06:36 Lymphocytes % (Manual) 9 % (20-50) L 11/26/17 06:36 Monocytes % (Manual) 3 % (0-10) 11/26/17 06:36 Platelet Estimate Normal (NORMAL) 11/26/17 06:36 RBC Morphology Normal (NORMAL) 11/26/17 06:36 PT 11.5 Seconds (9.8-13.1) 11/26/17 14:10 INR 1.0 11/26/17 14:10 APTT 30.6 Seconds (25.6-37.1) 11/26/17 14:10 Sodium 137 mmol/l (132-148) 11/29/17 05:40 Potassium 3.9 MMOL/L (3.6-5.0) 11/29/17 05:40 Chloride 105 mmol/L (98-107) 11/29/17 05:40 Carbon Dioxide 25 mmol/L (22-30) 11/29/17 05:40 Anion Gap 11 (10-20) 11/29/17 05:40 BUN 13 mg/dl (9-20) 11/29/17 05:40 Creatinine 0.7 mg/dl (0.8-1.5) L 11/29/17 05:40 Est GFR ( Amer) > 60 11/29/17 05:40 Est GFR (Non-Af Amer) > 60 11/29/17 05:40 Random Glucose 106 mg/dL (75-110) 11/29/17 05:40 Calcium 8.0 mg/dL (8.4-10.2) L 11/29/17 05:40 Phosphorus 2.3 mg/dl (2.5-4.5) L 11/29/17 05:40 Magnesium 2.3 MG/DL (1.6-2.3) 11/29/17 05:40 Total Bilirubin 1.6 mg/dl (0.2-1.3) H 11/29/17 05:40 AST 30 U/L (17-59) 11/29/17 05:40 ALT 220 U/L (21-72) H D 11/29/17 05:40 Alkaline Phosphatase 138 U/L (38-126) H 11/29/17 05:40 Total Protein 6.1 G/DL (6.3-8.2) L 11/29/17 05:40 Albumin 2.9 g/dL (3.5-5.0) L 11/29/17 05:40 Globulin 3.1 gm/dL (2.2-3.9) 11/29/17 05:40 Albumin/Globulin Ratio 0.9 (1.0-2.1) L 11/29/17 05:40 Lipase 42 U/L (23-300) 11/26/17 06:36 Urine Color Yellow (YELLOW) 11/26/17 07:24 Urine Clarity Slighty-cloudy (Clear) 11/26/17 07:24 Urine pH 5.0 (5.0-8.0) 11/26/17 07:24 Ur Specific [place] 1.023 (1.003-1.030) 11/26/17 07:24 Urine Protein Negative mg/dL (NEGATIVE) 11/26/17 07:24 Urine Glucose (UA) Neg mg/dL (Normal) 11/26/17 07:24 Urine Ketones Negative mg/dL (NEGATIVE) 11/26/17 07:24 Urine Blood Negative (NEGATIVE) 11/26/17 07:24 Urine Nitrate Negative (NEGATIVE) 11/26/17 07:24 Urine Bilirubin Negative (NEGATIVE) 11/26/17 07:24 Urine Urobilinogen 0.2-1.0 mg/dL (0.2-1.0) 11/26/17 07:24 Ur Leukocyte Esterase Neg Angelic/uL (Negative) 11/26/17 07:24 Urine RBC (Auto) 3 /hpf (0-3) 11/26/17 07:24 Urine Microscopic WBC < 1 /hpf (0-5) 11/26/17 07:24 Urine Bacteria Rare (<OCC) 11/26/17 07:24
[2017-11-30] MEDS: metroNIDAZOLE 500mg/100ml NS 100 ML IVPB SCH ×2 (00:55→09:06)
[2017-11-30] MEDS: Meropenem 1 GM in Sodium Chloride 0.9% 100 ML IVPB SCH ×2 (02:00→09:06)
[2017-11-30 06:28] LABS: BASO % 0.4 % (0.0-2.0); EOS # 0.1 K/uL (0.0-0.7); EOS % 1.2 % (0.0-4.0); HEMOGLOBIN 11.6 g/dL (12.0-18.0); LYMPH # 1.2 K/uL (1.0-4.3); LYMPH % 14.7 % (20.0-40.0); MEAN CELL VOLUME 92.2 fl (80.0-94.0); MEAN CORPUSCULAR HGB CONC 33.7 g/dL (33.0-37.0); MEAN PLATELET VOLUME 8.3 fl (7.2-11.7); MONO # 0.7 K/uL (0.0-0.8); MONO % 9.4 % (0.0-10.0); NEUT # 5.9 K/uL (1.8-7.0); NEUT % 74.3 % (50.0-75.0); RBC 3.75 Mil/uL (4.40-5.90); RED CELL DISTRIBUTION WIDTH 14.1 % (11.5-14.5); WHITE BLOOD COUNT 7.9 K/uL (4.8-10.8)
[2017-11-30 06:40] LABS: ALB/GLOB RATIO 0.9 (1.0-2.1); ALBUMIN 2.9 g/dL (3.5-5.0); ALT/SGPT 147 U/L (21-72); AST/SGOT 26 U/L (17-59); BLOOD UREA NITROGEN 19 mg/dl (9-20); CALCIUM 8.2 mg/dL (8.4-10.2); GFR NON-AFRICAN AMERICAN > 60
--- NOTE | 2017-11-30 07:28 | CP.PCM.PN ---
Subjective - Date & Time of Evaluation Date of Evaluation: 11/30/17 Time of Evaluation: 07:00 - Subjective Subjective: GENERAL SURGERY PROGRESS NOTE FOR DR. RAMOS Patient seen and examined at bedside. He is tolerating diet. Having normal BMs. No complaints. Objective - Vital Signs/Intake and Output Vital Signs (last 24 hours): Temp Pulse Resp BP Pulse Ox 98.5 F 63 20 105/64 97 11/29/17 23:45 11/29/17 23:45 11/29/17 23:45 11/29/17 23:45 11/29/17 23:45 - Medications Medications: Current Medications Acetaminophen (Tylenol 325mg Tab) 650 mg PO Q6 PRN PRN Reason: Fever >100.4 F Last Admin: 11/27/17 16:20 Dose: 650 mg Enalapril Maleate (Vasotec) 5 mg PO DAILY [facility] Last Admin: 11/29/17 09:25 Dose: 5 mg Enoxaparin Sodium (Lovenox) 40 mg SC DAILY [facility]; Protocol Last Admin: 11/26/17 22:07 Dose: 40 mg Metronidazole (Flagyl 500mg/100ml Ns) 100 mls @ 100 mls/hr IVPB Q8 [facility]; Protocol Last Admin: 11/30/17 00:55 Dose: 100 mls/hr Meropenem 1 gm/ Sodium (Chloride) 100 mls @ 100 mls/hr IVPB Q8 [facility]; Protocol Last Admin: 11/30/17 02:00 Dose: 100 mls/hr Morphine Sulfate (Morphine) 2 mg IVP Q4 PRN PRN Reason: Pain, moderate (4-7) Last Admin: 11/28/17 18:33 Dose: 2 mg Pantoprazole Sodium (Protonix Inj) 40 mg IVP DAILY [facility] Last Admin: 11/29/17 09:24 Dose: 40 mg - Labs Labs: 11/30/17 06:00 11/30/17 06:00 PT 11.5 Seconds (9.8-13.1) 11/26/17 14:10 INR 1.0 11/26/17 14:10 APTT 30.6 Seconds (25.6-37.1) 11/26/17 14:10 - Constitutional Appears: Non-toxic, No Acute Distress - Head Exam Head Exam: ATRAUMATIC, NORMAL INSPECTION - Eye Exam Eye Exam: EOMI, Normal appearance - Respiratory Exam Respiratory Exam: NORMAL BREATHING PATTERN. absent: Respiratory Distress - Cardiovascular Exam Cardiovascular Exam: +S1, +S2 - GI/Abdominal Exam GI & Abdominal Exam: Soft, Tenderness (mild tenderness to RUQ). absent: Distended, Firm, Guarding, Rigid Additional comments: Cholecystostomy tube in place with 150cc bilious output - Neurological Exam Neurological Exam: Alert, Awake, Oriented x3 - Psychiatric Exam Psychiatric exam: Normal Affect, Normal Mood - Skin Skin Exam: Dry, Normal Color, Warm Assessment and Plan - Assessment and Plan (Free Text) Assessment: 77yo M with cholecystitis s/p IR cholecystostomy tube 2 days ago - Hyperbilirubinemia resolved, LFts trending down - Tolerating low fat diet - Per ID, 8 days of IV Abx - Will plan for elective outpatient cholecystectomy - Discussed plan with Dr. Tariq Miller PGY-4
[2017-11-30 08:37] VITALS: BP 125/70; PULSE 62; RESP 18; TEMP 98.1
[2017-11-30] MEDS: Enoxaparin 40 mg Syringe SC SCH (09:05)
--- NOTE | 2017-11-30 09:07 | CP.PCM.PN ---
Subjective - Date & Time of Evaluation Date of Evaluation: 11/30/17 Time of Evaluation: 09:02 - Subjective Subjective: General Surgery Pt seen and examined this AM. He reports tolerating low fat diet. (-) N/V. Afebrile Labs and vitals. T bili normal. LFTs improving, remain elevated. PE Gen: Pt sitting in chair in NAD Skin: warm and dry Cardio: s1s2 RRR Lungs: CTA bilaterally Abd: Soft (+)RUQ tenderness at site of cholecystostomy tube, (+) cholecystostomy tube with clear light brown output. Extr: (-) calf tenderness bilaterally A/P Cholecystitis s/p cholecystostomy tube Pt to be transferred to TCU for IV abx Pt to continue low fat diet Pt will require an elective cholecystectomy as an outpt. Dr. Potter will schedule with pt. Pt to stay with choecystostomy tube til then. Objective - Vital Signs/Intake and Output Vital Signs (last 24 hours): Temp Pulse Resp BP Pulse Ox 98.1 F 62 18 125/70 97 11/30/17 08:36 11/30/17 08:36 11/30/17 08:36 11/30/17 08:36 11/30/17 08:36 - Medications Medications: Current Medications Acetaminophen (Tylenol 325mg Tab) 650 mg PO Q6 PRN PRN Reason: Fever >100.4 F Last Admin: 11/27/17 16:20 Dose: 650 mg Enalapril Maleate (Vasotec) 5 mg PO DAILY [facility] Last Admin: 11/29/17 09:25 Dose: 5 mg Enoxaparin Sodium (Lovenox) 40 mg SC DAILY [facility]; Protocol Last Admin: 11/26/17 22:07 Dose: 40 mg Metronidazole (Flagyl 500mg/100ml Ns) 100 mls @ 100 mls/hr IVPB Q8 [facility]; Protocol Last Admin: 11/30/17 00:55 Dose: 100 mls/hr Meropenem 1 gm/ Sodium (Chloride) 100 mls @ 100 mls/hr IVPB Q8 [facility]; Protocol Last Admin: 11/30/17 02:00 Dose: 100 mls/hr Morphine Sulfate (Morphine) 2 mg IVP Q4 PRN PRN Reason: Pain, moderate (4-7) Last Admin: 11/28/17 18:33 Dose: 2 mg Pantoprazole Sodium (Protonix Inj) 40 mg IVP DAILY [facility] Last Admin: 11/29/17 09:24 Dose: 40 mg - Labs Labs: 11/30/17 06:00 11/30/17 06:00 PT 11.5 Seconds (9.8-13.1) 11/26/17 14:10 INR 1.0 11/26/17 14:10 APTT 30.6 Seconds (25.6-37.1) 11/26/17 14:10
--- NOTE | 2017-11-30 11:47 | CP.PCM.PN ---
Subjective - Date & Time of Evaluation Date of Evaluation: 11/30/17 Time of Evaluation: 11:47 - Subjective Subjective: Id note- pt. seen and examined today. pt. feels better and is passing flatus. denies any nausea. still has some abdominal pain but less than before. Objective - Vital Signs/Intake and Output Vital Signs (last 24 hours): Temp Pulse Resp BP Pulse Ox 98.1 F 62 18 125/70 97 11/30/17 08:36 11/30/17 08:36 11/30/17 08:36 11/30/17 08:36 11/30/17 08:36 - Medications Medications: Current Medications Acetaminophen (Tylenol 325mg Tab) 650 mg PO Q6 PRN PRN Reason: Fever >100.4 F Last Admin: 11/27/17 16:20 Dose: 650 mg Enalapril Maleate (Vasotec) 5 mg PO DAILY [facility] Last Admin: 11/30/17 09:05 Dose: 5 mg Enoxaparin Sodium (Lovenox) 40 mg SC DAILY [facility]; Protocol Last Admin: 11/30/17 09:05 Dose: 40 mg Metronidazole (Flagyl 500mg/100ml Ns) 100 mls @ 100 mls/hr IVPB Q8 [facility]; Protocol Last Admin: 11/30/17 09:06 Dose: 100 mls/hr Meropenem 1 gm/ Sodium (Chloride) 100 mls @ 100 mls/hr IVPB Q8 [facility]; Protocol Last Admin: 11/30/17 09:06 Dose: 100 mls/hr Morphine Sulfate (Morphine) 2 mg IVP Q4 PRN PRN Reason: Pain, moderate (4-7) Last Admin: 11/28/17 18:33 Dose: 2 mg Pantoprazole Sodium (Protonix Inj) 40 mg IVP DAILY [facility] Last Admin: 11/30/17 09:11 Dose: 40 mg - Labs Labs: - Additional Findings Additional findings: - Constitutional Appears: No Acute Distress - Head Exam Head Exam: ATRAUMATIC - Eye Exam Eye Exam: EOMI, PERRL - ENT Exam ENT Exam: Normal Oropharynx - Neck Exam Neck exam: Positive for: Full Rom - Respiratory Exam Respiratory Exam: Clear to Auscultation Bilateral, NORMAL BREATHING PATTERN - Cardiovascular Exam Cardiovascular Exam: RRR, +S1, +S2 - GI/Abdominal Exam Additional comments: slight distention, bowel sounds heard has right abd cholecystostomy drain tube with scant straw colored fluid in the bag + tenderness to palpation in right upper abdomen but much less than before No guarding, No rebound - Extremities Exam Extremities exam: Positive for: normal inspection - Neurological Exam Neurological exam: Alert, Oriented x 3 Laboratory Results - last 72 hr 11/28/17 11/28/17 11/29/17 04:40 04:40 05:40 WBC 20.1 H 11.4 H RBC 3.87 L 3.65 L Hgb 11.9 L 11.3 L Hct 35.2 33.7 L MCV 91.0 92.1 MCH 30.7 30.8 MCHC 33.7 33.5 RDW 13.9 14.1 Plt Count 228 252 MPV 8.9 8.5 Neut % (Auto) 89.6 H 83.0 H Lymph % (Auto) 5.0 L 7.9 L Lyman % (Auto) 5.3 8.5 Eos % (Auto) 0.0 0.3 Baso % (Auto) 0.1 0.3 Neut # (Auto) 18.0 H 9.5 H Lymph # (Auto) 1.0 0.9 L Lyman # (Auto) 1.1 H 1.0 H Eos # (Auto) 0.0 0.0 Baso # (Auto) 0.0 0.0 Sodium 135 Potassium 3.6 Chloride 104 Carbon Dioxide 24 Anion Gap 11 BUN 13 Creatinine 0.8 Est GFR ( Amer) > 60 Est GFR (Non-Af Amer) > 60 Random Glucose 113 H Calcium 7.9 L Phosphorus Magnesium 2.1 Total Bilirubin 3.2 H AST 78 H D ALT 384 H D Alkaline Phosphatase 165 H Total Protein 6.4 Albumin 3.1 L Globulin 3.3 Albumin/Globulin Ratio 0.9 L 11/29/17 11/30/17 11/30/17 05:40 06:00 06:00 WBC 7.9 RBC 3.75 L Hgb 11.6 L Hct 34.5 L MCV 92.2 MCH 31.0 MCHC 33.7 RDW 14.1 Plt Count 289 MPV 8.3 Neut % (Auto) 74.3 Lymph % (Auto) 14.7 L Lyman % (Auto) 9.4 Eos % (Auto) 1.2 Baso % (Auto) 0.4 Neut # (Auto) 5.9 Lymph # (Auto) 1.2 Lyman # (Auto) 0.7 Eos # (Auto) 0.1 Baso # (Auto) 0.0 Sodium 137 138 Potassium 3.9 3.7 Chloride 105 107 Carbon Dioxide 25 25 Anion Gap 11 10 BUN 13 19 Creatinine 0.7 L 0.7 L Est GFR ( Amer) > 60 > 60 Est GFR (Non-Af Amer) > 60 > 60 Random Glucose 106 105 Calcium 8.0 L 8.2 L Phosphorus 2.3 L Magnesium 2.3 Total Bilirubin 1.6 H 0.5 AST 30 26 ALT 220 H D 147 H D Alkaline Phosphatase 138 H 132 H Total Protein 6.1 L 6.2 L Albumin 2.9 L 2.9 L Globulin 3.1 3.2 Albumin/Globulin Ratio 0.9 L 0.9 L Microbiology 11/28/17 14:40 Gallbladder Gram Stain - Final 11/28/17 14:40 Gallbladder Wound Culture - Final Escherichia Coli 11/26/17 10:00 Blood Blood Culture - Preliminary NO GROWTH AFTER 4 DAYS 11/28/17 20:45 Blood-Venous Blood Culture - Preliminary NO GROWTH AFTER 24 HOURS 11/28/17 20:30 Blood-Venous Blood Culture - Preliminary NO GROWTH AFTER 24 HOURS Assessment and Plan (1) Cholecystitis Status: Acute (2) Leukocytosis Status: Acute (3) Fever Status: Acute - Assessment and Plan (Free Text) Assessment: A/P- 77 year old male admitted with RUQ pain found to have cholecystitis with fever and leukocytosis. s/p cholecystostomy tube placment today by IR. clinically much improved. afebrile past 2 days. leukocytosis trending down. Blood cx- neg x 3 Gb fluid cx- ESBL E.Coli Plan- advise to continue with meropnem 1 gram [id number] for ESBL e.coli cholecystitis day #3. advise at least 7 more days of Iv meropenem. advise to continue with IV flagyl that was started today by primary team. cholecystectomy as per surgical team . All labs and imaging and chart notes reviewed,
--- NOTE | 2017-11-30 12:26 | CP.PCM.PN ---
Subjective - Date & Time of Evaluation Date of Evaluation: 11/30/17 Time of Evaluation: 11:00 - Subjective Subjective: Patient was seen and examined bedside . Feeling well, Complains of some pain to RUQ where cholecystostomy tube is . Will brownish output to cholecystosctomy bag. Hemodynamically stable, afebrile Tolerating PO intake Passing flatus and voiding freely Objective - Vital Signs/Intake and Output Vital Signs (last 24 hours): Temp Pulse Resp BP Pulse Ox 98.1 F 62 18 125/70 97 11/30/17 08:36 11/30/17 08:36 11/30/17 08:36 11/30/17 08:36 11/30/17 08:36 - Medications Medications: Current Medications Acetaminophen (Tylenol 325mg Tab) 650 mg PO Q6 PRN PRN Reason: Fever >100.4 F Last Admin: 11/27/17 16:20 Dose: 650 mg Enalapril Maleate (Vasotec) 5 mg PO DAILY [facility] Last Admin: 11/30/17 09:05 Dose: 5 mg Enoxaparin Sodium (Lovenox) 40 mg SC DAILY [facility]; Protocol Last Admin: 11/30/17 09:05 Dose: 40 mg Metronidazole (Flagyl 500mg/100ml Ns) 100 mls @ 100 mls/hr IVPB Q8 [facility]; Protocol Last Admin: 11/30/17 09:06 Dose: 100 mls/hr Meropenem 1 gm/ Sodium (Chloride) 100 mls @ 100 mls/hr IVPB Q8 [facility]; Protocol Last Admin: 11/30/17 09:06 Dose: 100 mls/hr Morphine Sulfate (Morphine) 2 mg IVP Q4 PRN PRN Reason: Pain, moderate (4-7) Last Admin: 11/28/17 18:33 Dose: 2 mg Pantoprazole Sodium (Protonix Inj) 40 mg IVP DAILY [facility] Last Admin: 11/30/17 09:11 Dose: 40 mg - Labs Labs: 11/30/17 06:00 11/30/17 06:00 PT 11.5 Seconds (9.8-13.1) 11/26/17 14:10 INR 1.0 11/26/17 14:10 APTT 30.6 Seconds (25.6-37.1) 11/26/17 14:10 - Constitutional Appears: Non-toxic, No Acute Distress - Head Exam Head Exam: ATRAUMATIC, NORMAL INSPECTION, NORMOCEPHALIC - Eye Exam Eye Exam: EOMI, Normal appearance, PERRL Pupil Exam: NORMAL ACCOMODATION - ENT Exam ENT Exam: Mucous Membranes Moist, Normal Exam - Neck Exam Neck Exam: Full ROM, Normal Inspection - Respiratory Exam Respiratory Exam: Clear to Ausculation Bilateral, NORMAL BREATHING PATTERN. absent: Rales, Rhonchi, Wheezes - Cardiovascular Exam Cardiovascular Exam: REGULAR RHYTHM, RRR, +S1, +S2. absent: JVD - GI/Abdominal Exam GI & Abdominal Exam: Soft, Normal Bowel Sounds. absent: Distended, Guarding, Tenderness, Rebound Additional comments: RUQ cholecystostomy drain - Rectal Exam Rectal Exam: Deferred - Extremities Exam Extremities Exam: Full ROM, Normal Capillary Refill, Normal Inspection. absent: Calf Tenderness, Pedal Edema, Tenderness - Back Exam Back Exam: NORMAL INSPECTION - Neurological Exam Neurological Exam: Alert, Awake, CN II-XII Intact, Oriented x3 - Psychiatric Exam Psychiatric exam: Normal Affect, Normal Mood - Skin Skin Exam: Dry, Intact, Normal Color, Warm Assessment and Plan - Assessment and Plan (Free Text) Assessment: 77 y/o male with PMH HTn presented with RUQ abdominal pain . CT abdomen showed acute cholecystitis and gallbladder neck stone. LFT-s and bilirubin noted to be elevated . MRCP showed large gallbladder neck stone, no choledocholithiasis Surgery , ID and IR consulted .Started on Meropenem and Flagyl IV , cultures sent. Underwent cholecystestomy drain placement by Ir 11/29 At present doing well. LFT-s and bilirubin trending down . Cultures from bile reported ESBl E. Coli Plan is to continue IV antibiotics, Meropenem for 1 week and than perform cholecystectomy Will discfharge patient to TCu for continuation of IV antibiotics Dx ESBL E.Coli cholecystitis Gallbladder neck stone HTN
--- NOTE | 2017-11-30 16:27 | CP.PCM.PN ---
Subjective - Date & Time of Evaluation Date of Evaluation: 11/30/17 Time of Evaluation: 12:00 - Subjective Subjective: no overnight events Objective - Vital Signs/Intake and Output Vital Signs (last 24 hours): Temp Pulse Resp BP Pulse Ox 98.1 F 62 18 125/70 97 11/30/17 08:36 11/30/17 08:36 11/30/17 08:36 11/30/17 08:36 11/30/17 08:36 - Labs Labs: 11/30/17 06:00 11/30/17 06:00 PT 11.5 Seconds (9.8-13.1) 11/26/17 14:10 INR 1.0 11/26/17 14:10 APTT 30.6 Seconds (25.6-37.1) 11/26/17 14:10 - Head Exam Head Exam: NORMOCEPHALIC - Neck Exam Neck Exam: Normal Inspection - Respiratory Exam Respiratory Exam: Clear to Ausculation Bilateral, NORMAL BREATHING PATTERN - Cardiovascular Exam Cardiovascular Exam: REGULAR RHYTHM - GI/Abdominal Exam GI & Abdominal Exam: Soft, Normal Bowel Sounds Assessment and Plan - Assessment and Plan (Free Text) Assessment: 77 yo male with cholecystitis doing well surgical eval
== END 2017-11-30 16:00 | DRG 446 ==
LOC: H.ER 04:21 → H.ERHOLD 09:36 → H.MEDSURG1 14:49
PROC: 0F9430Z Drainage of Gallbladder with Drainage Device, Percutaneous Approach (ICD-10-PCS; principal; 2017-11-28 13:30)
DX: K80.00 Calculus of gallbladder with acute cholecystitis without obstruction (principal); I10 Essential (primary) hypertension; I45.10 Unspecified right bundle-branch block; K83.8 Other specified diseases of biliary tract; K76.89 Other specified diseases of liver; R79.89 Other specified abnormal findings of blood chemistry; E80.6 Other disorders of bilirubin metabolism

== ENCOUNTER 2017-11-30 14:52 | Inpatient (IN) | payer BC, OTHER ==
[2017-11-30] MEDS ORDERED: Patient's Own Med (Meropenem [Meropenem] 1 GM) IV SCH (17:00)
[2017-11-30] MEDS ORDERED: metroNIDAZOLE 500mg/100ml NS IVPB SCH (17:00)
[2017-11-30 17:27] VITALS: RESP 20
[2017-11-30] MEDS: Meropenem 1 GM in Sodium Chloride 0.9% 100 ML IVPB SCH (17:29)
[2017-11-30] MEDS: metroNIDAZOLE 500mg/100ml NS 100 ML IVPB SCH (17:30)
[2017-12-01] MEDS: Meropenem 1 GM in Sodium Chloride 0.9% 100 ML IVPB SCH ×3 (01:01→17:13)
[2017-12-01] MEDS: metroNIDAZOLE 500mg/100ml NS 100 ML IVPB SCH ×3 (01:06→17:14)
[2017-12-01 06:24] LABS: BASO % 0.5 % (0.0-2.0); EOS # 0.1 K/uL (0.0-0.7); EOS % 1.6 % (0.0-4.0); HEMOGLOBIN 11.9 g/dL (12.0-18.0); LYMPH # 1.2 K/uL (1.0-4.3); LYMPH % 18.4 % (20.0-40.0); MEAN CELL VOLUME 91.3 fl (80.0-94.0); MEAN CORPUSCULAR HEMOGLOBIN 30.8 pg (27.0-31.0); MEAN CORPUSCULAR HGB CONC 33.8 g/dL (33.0-37.0); MEAN PLATELET VOLUME 7.9 fl (7.2-11.7); MONO # 0.7 K/uL (0.0-0.8); MONO % 11.1 % (0.0-10.0); NEUT # 4.6 K/uL (1.8-7.0); NEUT % 68.4 % (50.0-75.0); NRBC % 0.1 % (0.0-0.0); RBC 3.86 Mil/uL (4.40-5.90); RED CELL DISTRIBUTION WIDTH 13.8 % (11.5-14.5); WHITE BLOOD COUNT 6.7 K/uL (4.8-10.8)
[2017-12-01 06:28] LABS: ALB/GLOB RATIO 0.9 (1.0-2.1); ALT/SGPT 126 U/L (21-72); AST/SGOT 27 U/L (17-59); BLOOD UREA NITROGEN 16 mg/dl (9-20); CALCIUM 8.5 mg/dL (8.4-10.2); GFR NON-AFRICAN AMERICAN > 60
[2017-12-01] MEDS: Enoxaparin 40 mg Syringe SC SCH (09:48)
--- NOTE | 2017-12-01 10:46 | CP.PCM.HP ---
<Lane Cosme - Last Filed: 12/01/17 10:39> History of Present Illness - History of Present Illness History of Present Illness: 76 y/o M with PMH of HTN (on enalapril) presented to ED on 11/26 for c/o constant, sharp RUQ pain that began 11/25 evening at about 5pm. The patient reports the pain was accompanied by some nausea, and was 7/10 in nature. He was admitted to [facility] and treated for acute cholecystitis. General surgery was consulted and a cholecystotomy tube was placed to cool him down before surgery. Cardiology cleared patient for surgery during his stay after echocardiogram was reviewed and revealed normal findings. Gallbladder culture revealed E. coli, ID was consulted and patient was placed on meropenem and flagyl. Patient is transferred to TCU for at least 8 more days of antibiotics. He denies N/V/F/C/SOB/CP. He has no new acute complaints. Surgery plans for cholescystect kraig. PMD: Dr. Thompson PMHx: HTN, cholecystitis MEDS: Enalapril 5mg PO QD PSHx: Hemorrhoidectomy AllERGIES: NKDA FH: Non contributory SH: Denies cigarette, ETOH use, or illicit drugs Present on Admission - Present on Admission Any Indicators Present on Admission: No Review of Systems - Constitutional Constitutional: As Per HPI Past Patient History - Past Medical History & Family History Past Medical History?: Yes - Past Social History Smoking Status: Never Smoked - CARDIAC Hx Hypertension: Yes - PULMONARY Hx Respiratory Disorders: No - NEUROLOGICAL Hx Neurological Disorder: No - HEENT Hx HEENT Problems: No - RENAL Hx Chronic Kidney Disease: No - ENDOCRINE/METABOLIC Hx Endocrine Disorders: No - HEMATOLOGICAL/ONCOLOGICAL Hx Blood Disorders: No Hx AIDS: No Hx Human Immunodeficiency Virus (HIV): No - INTEGUMENTARY Hx Dermatological Problems: No - MUSCULOSKELETAL/RHEUMATOLOGICAL Hx Musculoskeletal Disorders: No Hx Falls: No - GASTROINTESTINAL Hx Gastrointestinal Disorders: No Other/Comment: cholecystostomy with drainage bag - GENITOURINARY/GYNECOLOGICAL Hx Genitourinary Disorders: No - PSYCHIATRIC Hx Psychophysiologic Disorder: No Hx Substance Use: No - SURGICAL HISTORY Hx Appendectomy: No Hx Cholecystectomy: No - ANESTHESIA Hx Anesthesia: Yes Meds Allergies/Adverse Reactions: Allergies Allergy/AdvReac Type Severity Reaction Status Date / Time No Known Allergies Allergy Verified 11/30/17 15:03 Physical Exam - Constitutional Appears: Well, Non-toxic, No Acute Distress - Head Exam Head Exam: ATRAUMATIC, NORMOCEPHALIC - Eye Exam Eye Exam: EOMI - ENT Exam ENT Exam: Mucous Membranes Moist - Respiratory Exam Respiratory Exam: Clear to Auscultation Bilateral, NORMAL BREATHING PATTERN - Cardiovascular Exam Cardiovascular Exam: REGULAR RHYTHM, +S1, +S2 - GI/Abdominal Exam Additional comments: soft abdomen mild RUQ tendons negative rivas's sign no rigidity or guarding dressing clean and intact for site of cholecystectomy tube bag noted to contain brown fluid - Extremities Exam Extremities exam: Positive for: normal capillary refill, normal inspection. Negative for: pedal edema - Neurological Exam Neurological exam: Alert, Oriented x3 - Psychiatric Exam Psychiatric exam: Normal Affect, Normal Mood - Skin Skin Exam: Dry, Normal Color, Warm Results - Vital Signs Recent Vital Signs: Last Vital Signs Temp 97.1 F L 12/01/17 09:29 Pulse 66 12/01/17 09:29 Resp 20 12/01/17 09:29 BP 142/78 12/01/17 09:29 Pulse Ox 97 12/01/17 09:29 - Labs Result Diagrams: 12/01/17 06:05 12/01/17 06:05 Labs: Laboratory Results - last 24 hr 12/01/17 12/01/17 06:05 06:05 WBC 6.7 RBC 3.86 L Hgb 11.9 L Hct 35.3 MCV 91.3 MCH 30.8 MCHC 33.8 RDW 13.8 Plt Count 312 MPV 7.9 Neut % (Auto) 68.4 Lymph % (Auto) 18.4 L Dukes % (Auto) 11.1 H Eos % (Auto) 1.6 Baso % (Auto) 0.5 Neut # (Auto) 4.6 Lymph # (Auto) 1.2 Dukes # (Auto) 0.7 Eos # (Auto) 0.1 Baso # (Auto) 0.0 Sodium 138 Potassium 3.9 Chloride 104 Carbon Dioxide 30 Anion Gap 8 L BUN 16 Creatinine 0.6 L Est GFR ( Amer) > 60 Est GFR (Non-Af Amer) > 60 Random Glucose 102 Calcium 8.5 Total Bilirubin 0.4 AST 27 ALT 126 H Alkaline Phosphatase 119 Total Protein 6.3 Albumin 3.0 L Globulin 3.3 Albumin/Globulin Ratio 0.9 L Assessment & Plan - Assessment and Plan (Free Text) Assessment: 76 y/o M with PMH of HTN (on enalapril) who presented to ED with RUQ pain and found to have cholecysitis Plan: 1. Cholecystitis (Acute, symptomatic) -Surgery team is on case and recommendations have been appreciated - cholecystectomy tube inserted 11/28 - dressing clean and intact - continue to monitor drainage in bag - brown today. -MRCP (11/27) - moderate common bile duct and common hepatic duct dilation; no gross pancreatic findings; active cholecystitis suggested with large claculus at hte neck of gallbladder likely impacted; multiple small hepatic cysts suggested -Dr. Gutiérrez consulted for cardiac clearance as per surgery team - right bundle branch block appreciated on EKG, f/u echocardiogram before providing clearance (surgery team aware) -Echo (11/28) - left ventricle normal size, normal thickness, normal LV segmental wall motion, EF 65-70% -Continue pain medication regimen -ID consulted - recs appreciated -meropenem day #2 in TCU -flagyl day #2 in TCU -patient will need at least 8 days of IV antibiotics 2. HTN ( Chronic) -Continue enalapril 5mg PO QD 3. DVT prophylaxis - lovenox 40 mg SC daily - Date & Time Date: 12/01/17 Time: 10:50 <Oliver Azar D - Last Filed: 12/01/17 14:42> Results - Vital Signs Recent Vital Signs: Last Vital Signs Temp 97.1 F L 12/01/17 09:29 Pulse 66 12/01/17 13:37 Resp 20 12/01/17 09:29 BP 142/78 12/01/17 13:37 Pulse Ox 97 12/01/17 13:37 - Labs Result Diagrams: 12/01/17 06:05 12/01/17 06:05 Labs: Laboratory Results - last 24 hr 12/01/17 12/01/17 06:05 06:05 WBC 6.7 RBC 3.86 L Hgb 11.9 L Hct 35.3 MCV 91.3 MCH 30.8 MCHC 33.8 RDW 13.8 Plt Count 312 MPV 7.9 Neut % (Auto) 68.4 Lymph % (Auto) 18.4 L Dukes % (Auto) 11.1 H Eos % (Auto) 1.6 Baso % (Auto) 0.5 Neut # (Auto) 4.6 Lymph # (Auto) 1.2 Dukes # (Auto) 0.7 Eos # (Auto) 0.1 Baso # (Auto) 0.0 Sodium 138 Potassium 3.9 Chloride 104 Carbon Dioxide 30 Anion Gap 8 L BUN 16 Creatinine 0.6 L Est GFR ( Amer) > 60 Est GFR (Non-Af Amer) > 60 Random Glucose 102 Calcium 8.5 Total Bilirubin 0.4 AST 27 ALT 126 H Alkaline Phosphatase 119 Total Protein 6.3 Albumin 3.0 L Globulin 3.3 Albumin/Globulin Ratio 0.9 L Attending/Attestation - Attestation I have personally seen and examined this patient.: Yes I have fully participated in the care of the patient.: Yes I have reviewed all pertinent clinical information: Yes Notes (Text): 12/01/17 14:40 Patient seen and examined with resident. Case discussed and agreed with assessment and plan of management.
--- NOTE | 2017-12-01 11:23 | CP.PCM.PN ---
Subjective - Date & Time of Evaluation Date of Evaluation: 12/01/17 Time of Evaluation: 11:23 - Subjective Subjective: ID note- Pt. seen and examined in TCU. sitting up in chair. states he is able to eat some food and denies any nausea and denies any diarrhea and denies any fever. Objective - Vital Signs/Intake and Output Vital Signs (last 24 hours): Temp Pulse Resp BP Pulse Ox 97.1 F L 66 20 142/78 97 12/01/17 09:29 12/01/17 09:29 12/01/17 09:29 12/01/17 09:29 12/01/17 09:29 - Medications Medications: Current Medications Acetaminophen (Tylenol 325mg Tab) 650 mg PO Q6 PRN PRN Reason: Fever >100.4 F Docusate Sodium (Colace) 100 mg PO BID [facility] Last Admin: 12/01/17 09:49 Dose: 100 mg Enalapril Maleate (Vasotec) 5 mg PO DAILY [facility] Last Admin: 12/01/17 09:49 Dose: 5 mg Enoxaparin Sodium (Lovenox) 40 mg SC DAILY [facility]; Protocol Last Admin: 12/01/17 09:48 Dose: 40 mg Metronidazole (Flagyl 500mg/100ml Ns) 100 mls @ 100 mls/hr IVPB Q8 [facility] Last Admin: 12/01/17 09:48 Dose: 100 mls/hr Meropenem 1 gm/ Sodium (Chloride) 100 mls @ 100 mls/hr IVPB Q8 [facility] Last Admin: 12/01/17 09:47 Dose: 100 mls/hr Ibuprofen (Motrin Tab) 600 mg PO Q8 PRN PRN Reason: Pain, moderate (4-7) Last Admin: 12/01/17 09:49 Dose: 600 mg Morphine Sulfate (Morphine) 2 mg IVP Q4 PRN PRN Reason: Pain, moderate (4-7) Ondansetron HCl (Zofran Inj) 4 mg IVP Q6 PRN PRN Reason: Nausea/Vomiting Pantoprazole Sodium (Protonix Inj) 40 mg IVP DAILY [facility] Last Admin: 12/01/17 09:50 Dose: 40 mg - Labs Labs: - Additional Findings Additional findings: - Constitutional Appears: No Acute Distress - Head Exam Head Exam: ATRAUMATIC - Eye Exam Eye Exam: EOMI, PERRL - ENT Exam ENT Exam: Normal Oropharynx - Neck Exam Neck exam: Positive for: Full Rom - Respiratory Exam Respiratory Exam: Clear to Auscultation Bilateral, NORMAL BREATHING PATTERN - Cardiovascular Exam Cardiovascular Exam: RRR, +S1, +S2 - GI/Abdominal Exam Additional comments: slight distention, bowel sounds heard has right abd cholecystostomy drain tube with scant straw colored fluid in the bag + tenderness to palpation in right upper abdomen but much less than before No guarding, No rebound - Extremities Exam Extremities exam: Positive for: normal inspection - Neurological Exam Neurological exam: Alert, Oriented x 3 Laboratory Results - last 72 hr 12/01/17 12/01/17 06:05 06:05 WBC 6.7 RBC 3.86 L Hgb 11.9 L Hct 35.3 MCV 91.3 MCH 30.8 MCHC 33.8 RDW 13.8 Plt Count 312 MPV 7.9 Neut % (Auto) 68.4 Lymph % (Auto) 18.4 L [place] % (Auto) 11.1 H Eos % (Auto) 1.6 Baso % (Auto) 0.5 Neut # (Auto) 4.6 Lymph # (Auto) 1.2 [place] # (Auto) 0.7 Eos # (Auto) 0.1 Baso # (Auto) 0.0 Sodium 138 Potassium 3.9 Chloride 104 Carbon Dioxide 30 Anion Gap 8 L BUN 16 Creatinine 0.6 L Est GFR ( Amer) > 60 Est GFR (Non-Af Amer) > 60 Random Glucose 102 Calcium 8.5 Total Bilirubin 0.4 AST 27 ALT 126 H Alkaline Phosphatase 119 Total Protein 6.3 Albumin 3.0 L Globulin 3.3 Albumin/Globulin Ratio 0.9 L Microbiology 11/28/17 14:40 Gallbladder Gram Stain - Final 11/28/17 14:40 Gallbladder Wound Culture - Final Escherichia Coli 11/26/17 10:00 Blood Blood Culture - Final 11/26/17 10:00 Blood Gram Stain - Final NO GROWTH AFTER 5 DAYS TEST NOT PERFORMED 11/28/17 20:45 Blood-Venous Blood Culture - Preliminary 11/28/17 20:45 Blood-Venous NO GROWTH AFTER 48 HOURS 11/28/17 20:30 Blood-Venous Blood Culture - Preliminary 11/28/17 20:30 Blood-Venous NO GROWTH AFTER 48 HOURS Assessment and Plan - Assessment and Plan (Free Text) Assessment: A/P- 77 year old male admitted with RUQ pain found to have cholecystitis with fever and leukocytosis. s/p cholecystostomy tube placment 3 days ago by IR now transferred to TCU to complete his abx and to get PT. clinically much improved. afebrile past 3 days. leukocytosis has resolved. Blood cx- neg x 3 Gb fluid cx- ESBL E.Coli Plan- advise to continue with meropnem 1 gram [id number] for ESBL e.coli cholecystitis day #4. advise at least 6 more days of Iv meropenem. advise to continue with IV flagyl that was started today by primary team. cholecystectomy as per surgical team . All labs and imaging and chart notes reviewed,
[2017-12-02] MEDS: Meropenem 1 GM in Sodium Chloride 0.9% 100 ML IVPB SCH ×3 (00:18→16:49)
[2017-12-02] MEDS: metroNIDAZOLE 500mg/100ml NS 100 ML IVPB SCH ×3 (01:30→16:50)
[2017-12-02] MEDS: Enoxaparin 40 mg Syringe SC SCH (08:52)
[2017-12-03] MEDS: metroNIDAZOLE 500mg/100ml NS 100 ML IVPB SCH ×3 (01:01→17:21)
[2017-12-03] MEDS: Meropenem 1 GM in Sodium Chloride 0.9% 100 ML IVPB SCH ×3 (01:01→17:20)
[2017-12-03] MEDS: Enoxaparin 40 mg Syringe SC SCH (08:53)
[2017-12-04] MEDS: Meropenem 1 GM in Sodium Chloride 0.9% 100 ML IVPB SCH ×4 (03:34→22:54)
[2017-12-04] MEDS: metroNIDAZOLE 500mg/100ml NS 100 ML IVPB SCH ×4 (03:34→21:47)
[2017-12-04] MEDS: Enoxaparin 40 mg Syringe SC SCH (09:09)
[2017-12-05] MEDS: metroNIDAZOLE 500mg/100ml NS 100 ML IVPB SCH ×3 (05:15→20:35)
[2017-12-05] MEDS: Meropenem 1 GM in Sodium Chloride 0.9% 100 ML IVPB SCH ×3 (06:38→21:45)
[2017-12-05] MEDS: Enoxaparin 40 mg Syringe SC SCH (08:24)
--- NOTE | 2017-12-05 10:35 | CP.PCM.PN ---
Subjective - Date & Time of Evaluation Date of Evaluation: 12/05/17 Time of Evaluation: 10:33 - Subjective Subjective: Patient seen and examined; no complaints offered at this time Denies any abdominal pain; tolerating diet IV Abx d/c planning Objective - Vital Signs/Intake and Output Vital Signs (last 24 hours): Temp Pulse Resp BP Pulse Ox 97.7 F 63 20 137/70 97 12/05/17 10:01 12/05/17 10:01 12/05/17 10:01 12/05/17 10:01 12/05/17 10:01 Intake and Output: 12/05/17 12/05/17 06:59 18:59 Output Total 25 Balance -25 - Medications Medications: Current Medications Acetaminophen (Tylenol 325mg Tab) 650 mg PO Q6 PRN PRN Reason: Fever >100.4 F Docusate Sodium (Colace) 100 mg PO BID [facility] Last Admin: 12/05/17 08:24 Dose: 100 mg Enalapril Maleate (Vasotec) 5 mg PO DAILY [facility] Last Admin: 12/05/17 08:24 Dose: 5 mg Enoxaparin Sodium (Lovenox) 40 mg SC DAILY [facility]; Protocol Last Admin: 12/05/17 08:24 Dose: 40 mg Metronidazole (Flagyl 500mg/100ml Ns) 100 mls @ 100 mls/hr IVPB Q8@0500,1300,2100 [facility]; Protocol Last Admin: 12/05/17 05:15 Dose: 100 mls/hr Meropenem 1 gm/ Sodium (Chloride) 100 mls @ 100 mls/hr IVPB Q8@0500,1300,2100 [facility]; Protocol Last Admin: 12/05/17 06:38 Dose: 100 mls/hr Ibuprofen (Motrin Tab) 600 mg PO Q8 PRN PRN Reason: Pain, moderate (4-7) Last Admin: 12/04/17 09:24 Dose: 600 mg Ondansetron HCl (Zofran Inj) 4 mg IVP Q6 PRN PRN Reason: Nausea/Vomiting Pantoprazole Sodium (Protonix Inj) 40 mg IVP DAILY [facility] Last Admin: 12/05/17 08:24 Dose: 40 mg - Labs Labs: 12/01/17 06:05 12/01/17 06:05 - Constitutional Appears: Well - Head Exam Head Exam: ATRAUMATIC - Eye Exam Eye Exam: EOMI, PERRL - ENT Exam ENT Exam: Mucous Membranes Moist - Respiratory Exam Respiratory Exam: Clear to Ausculation Bilateral - Cardiovascular Exam Cardiovascular Exam: REGULAR RHYTHM, +S1, +S2 - GI/Abdominal Exam GI & Abdominal Exam: Soft - Neurological Exam Neurological Exam: Alert, Awake, CN II-XII Intact, Oriented x3 Assessment and Plan - Assessment and Plan (Free Text) Assessment: 77 year old male admitted with RUQ pain found to have cholecystitis with fever and leukocytosis s/p s/p cholecystostomy transferred to TCU to complete his abx and to get PT Plan: IV Abx with Merrem and Flagyl de-escalate as per culture reports diet; dvt ppx Protonix d/c planning
[2017-12-06] MEDS: Meropenem 1 GM in Sodium Chloride 0.9% 100 ML IVPB SCH ×3 (04:50→20:30)
[2017-12-06] MEDS: metroNIDAZOLE 500mg/100ml NS 100 ML IVPB SCH ×3 (05:53→21:40)
[2017-12-06] MEDS: Enoxaparin 40 mg Syringe SC SCH (08:42)
[2017-12-06] MEDS: Pantoprazole 40 mg EC Tab PO SCH (11:17)
--- NOTE | 2017-12-06 16:09 | CP.PCM.PN ---
Subjective - Date & Time of Evaluation Date of Evaluation: 12/06/17 Time of Evaluation: 16:07 - Subjective Subjective: ID Note- Pt. seen and examined today in TCU. pt. sitting up in chair and is comfortable. He states he ahs been tolerating food without any nausea or vomiting. denies any diarrhea. He sattes he still ahs mild RUQ tenderness. chong any fever. He still has the cholecystostomy tube that as per nurse is being drained every 12 hours but about 80 CC bilious fluid each time. Objective - Vital Signs/Intake and Output Vital Signs (last 24 hours): Temp Pulse Resp BP Pulse Ox 97.4 F L 64 20 107/62 99 12/06/17 08:17 12/06/17 08:17 12/06/17 08:17 12/06/17 08:17 12/06/17 08:17 Intake and Output: 12/06/17 12/06/17 06:59 18:59 Intake Total 650 Output Total 20 Balance 630 - Medications Medications: Current Medications Acetaminophen (Tylenol 325mg Tab) 650 mg PO Q6 PRN PRN Reason: Fever >100.4 F Docusate Sodium (Colace) 100 mg PO BID [facility] Last Admin: 12/06/17 08:43 Dose: 100 mg Enalapril Maleate (Vasotec) 5 mg PO DAILY [facility] Last Admin: 12/06/17 08:43 Dose: 5 mg Enoxaparin Sodium (Lovenox) 40 mg SC DAILY [facility]; Protocol Last Admin: 12/06/17 08:42 Dose: 40 mg Metronidazole (Flagyl 500mg/100ml Ns) 100 mls @ 100 mls/hr IVPB Q8@0500,1300,2100 [facility]; Protocol Last Admin: 12/06/17 12:13 Dose: 100 mls/hr Meropenem 1 gm/ Sodium (Chloride) 100 mls @ 100 mls/hr IVPB Q8@0500,1300,2100 [facility]; Protocol Last Admin: 12/06/17 12:13 Dose: 100 mls/hr Ibuprofen (Motrin Tab) 600 mg PO Q8 PRN PRN Reason: Pain, moderate (4-7) Last Admin: 12/04/17 09:24 Dose: 600 mg Ondansetron HCl (Zofran Inj) 4 mg IVP Q6 PRN PRN Reason: Nausea/Vomiting Pantoprazole Sodium (Protonix Ec Tab) 40 mg PO DAILY [facility] Last Admin: 12/06/17 11:17 Dose: Not Given - Labs Labs: - Additional Findings Additional findings: - Constitutional Appears: No Acute Distress - Head Exam Head Exam: ATRAUMATIC - Eye Exam Eye Exam: EOMI, PERRL - ENT Exam ENT Exam: Normal Oropharynx - Neck Exam Neck exam: Positive for: Full Rom - Respiratory Exam Respiratory Exam: Clear to Auscultation Bilateral, NORMAL BREATHING PATTERN - Cardiovascular Exam Cardiovascular Exam: RRR, +S1, +S2 - GI/Abdominal Exam Additional comments: slight distention, bowel sounds heard has right abd cholecystostomy drain tube with scant straw/bilious colored fluid in the bag + tenderness to palpation in right upper abdomen but much less than before No guarding, No rebound - Extremities Exam Extremities exam: Positive for: normal inspection - Neurological Exam Neurological exam: Alert, Oriented x 3 ) Microbiology 11/28/17 20:45 Blood-Venous Blood Culture - Final 11/28/17 20:45 Blood-Venous Gram Stain - Final NO GROWTH AFTER 5 DAYS TEST NOT PERFORMED 11/28/17 20:30 Blood-Venous Blood Culture - Final 11/28/17 20:30 Blood-Venous Gram Stain - Final NO GROWTH AFTER 5 DAYS TEST NOT PERFORMED 11/26/17 10:00 Blood Blood Culture - Final 11/26/17 10:00 Blood Gram Stain - Final NO GROWTH AFTER 5 DAYS TEST NOT PERFORMED Assessment and Plan - Assessment and Plan (Free Text) Assessment: A/P- 77 year old male admitted with RUQ pain found to have cholecystitis with fever and leukocytosis. s/p cholecystostomy tube placment by IR TCU to complete his abx and to get PT. clinically much improved. afebrile past week. leukocytosis has resolved. Blood cx- neg x 3 Gb fluid cx- ESBL E.Coli Plan- advise to continue with meropnem 1 gram x7cthds for ESBL e.coli cholecystitis day #9. advise at least 1 more days of Iv meropenem. advise to continue with IV flagyl that was started today by primary team. cholecystectomy as per surgical team called neurosurgical physician assistant and asked what is the plan in terms of cholecystectomy time and when will the cholecystostomy tube be removed and as per resident she will ask her attending and notify the nurse. d/w hospitalist taking care of patient as well. .
[2017-12-07] MEDS: Meropenem 1 GM in Sodium Chloride 0.9% 100 ML IVPB SCH ×2 (04:20→12:03)
[2017-12-07] MEDS: metroNIDAZOLE 500mg/100ml NS 100 ML IVPB SCH ×3 (05:25→23:35)
[2017-12-07] MEDS: Enoxaparin 40 mg Syringe SC SCH (09:18)
[2017-12-07] MEDS: Pantoprazole 40 mg EC Tab PO SCH (09:24)
--- NOTE | 2017-12-07 15:36 | CP.PCM.DIS ---
Provider - Provider Date of Admission: 11/30/17 15:26 Attending physician: Lorena Mukherjee MD Consults: Dr Lety Roche Time Spent in preparation of Discharge (in minutes): 25 Diagnosis - Discharge Diagnosis (1) Cholecystitis Status: Acute Comment: LFTs down to normal level aside from Alk Phosphatase. WBC also within normal level. Patient has been afebrile and asymptomatic. Completed 10 days of IV Meropenem and Flagyl. For elective cholecystectomy (2) HTN (hypertension) Status: Chronic Comment: BP stable. on Enalapril 5mg PO daily Hospital Course - Lab Results Lab Results: Most Recent Lab Values WBC 6.7 K/uL (4.8-10.8) 12/01/17 06:05 RBC 3.86 Mil/uL (4.40-5.90) L 12/01/17 06:05 Hgb 11.9 g/dL (12.0-18.0) L 12/01/17 06:05 Hct 35.3 % (35.0-51.0) 12/01/17 06:05 MCV 91.3 fl (80.0-94.0) 12/01/17 06:05 MCH 30.8 pg (27.0-31.0) 12/01/17 06:05 MCHC 33.8 g/dL (33.0-37.0) 12/01/17 06:05 RDW 13.8 % (11.5-14.5) 12/01/17 06:05 Plt Count 312 K/uL (130-400) 12/01/17 06:05 MPV 7.9 fl (7.2-11.7) 12/01/17 06:05 Neut % (Auto) 68.4 % (50.0-75.0) 12/01/17 06:05 Lymph % (Auto) 18.4 % (20.0-40.0) L 12/01/17 06:05 Patrick % (Auto) 11.1 % (0.0-10.0) H 12/01/17 06:05 Eos % (Auto) 1.6 % (0.0-4.0) 12/01/17 06:05 Baso % (Auto) 0.5 % (0.0-2.0) 12/01/17 06:05 Neut # (Auto) 4.6 K/uL (1.8-7.0) 12/01/17 06:05 Lymph # (Auto) 1.2 K/uL (1.0-4.3) 12/01/17 06:05 Patrick # (Auto) 0.7 K/uL (0.0-0.8) 12/01/17 06:05 Eos # (Auto) 0.1 K/uL (0.0-0.7) 12/01/17 06:05 Baso # (Auto) 0.0 K/uL (0.0-0.2) 12/01/17 06:05 Sodium 138 mmol/l (132-148) 12/01/17 06:05 Potassium 3.9 MMOL/L (3.6-5.0) 12/01/17 06:05 Chloride 104 mmol/L (98-107) 12/01/17 06:05 Carbon Dioxide 30 mmol/L (22-30) 12/01/17 06:05 Anion Gap 8 (10-20) L 12/01/17 06:05 BUN 16 mg/dl (9-20) 12/01/17 06:05 Creatinine 0.6 mg/dl (0.8-1.5) L 12/01/17 06:05 Est GFR ( Amer) > 60 12/01/17 06:05 Est GFR (Non-Af Amer) > 60 12/01/17 06:05 Random Glucose 102 mg/dL (75-110) 12/01/17 06:05 Calcium 8.5 mg/dL (8.4-10.2) 12/01/17 06:05 Total Bilirubin 0.4 mg/dl (0.2-1.3) 12/01/17 06:05 AST 27 U/L (17-59) 12/01/17 06:05 ALT 126 U/L (21-72) H 12/01/17 06:05 Alkaline Phosphatase 119 U/L (38-126) 12/01/17 06:05 Total Protein 6.3 G/DL (6.3-8.2) 12/01/17 06:05 Albumin 3.0 g/dL (3.5-5.0) L 12/01/17 06:05 Globulin 3.3 gm/dL (2.2-3.9) 12/01/17 06:05 Albumin/Globulin Ratio 0.9 (1.0-2.1) L 12/01/17 06:05 - Hospital Course Hospital Course: 76 yo male with history of HTN was seen and admitted in the ER because of RUQ pain accompanied with nausea. He was found to have Acute Cholecystitis and was scheduled for cholecystectomy after cardiac clearance from Dr Dorado. However his LFTs were elevated so surgery was held and cholecystostomy tube was inserted by IR instead. Biliary drainage grew ESBL E Coli. ID was consulted and advised to put patient on Meropenem and Flagyl. His condition improved and patient was transferred to TCU for continuation of IV antibiotics. After completion of 10 days of IV Meropenem and Flagyl patient was discharged to [facility] for elective cholecystectomy. Discharge Exam - Head Exam Head Exam: ATRAUMATIC - Eye Exam Eye Exam: absent: Scleral icterus - ENT Exam ENT Exam: Mucous Membranes Moist - Respiratory Exam Respiratory Exam: absent: Rhonchi, Wheezes, Respiratory Distress, Stridor - Cardiovascular Exam Cardiovascular Exam: REGULAR RHYTHM, +S1, +S2 - GI/Abdominal Exam GI & Abdominal Exam: Soft. absent: Tenderness - Rectal Exam Rectal Exam: Deferred - Back Exam Back exam: NORMAL INSPECTION - Neurological Exam Neurological exam: Alert, Oriented x3 - Psychiatric Exam Psychiatric exam: Normal Affect - Skin Skin Exam: Dry, Intact Discharge Plan - Follow Up Plan Condition: GOOD Disposition: Trans to Other Acute Care Hosp Instructions: Cholecystectomy, Open Surgery Referrals: Cooper Davidson MD [Staff Provider] - Jed Roche MD [Staff Provider] - Attending/Attestation - Attestation I have personally seen and examined this patient.: Yes I have fully participated in the care of the patient.: Yes I have reviewed all pertinent clinical information, including history, physical exam and plan: Yes Notes (Text): 12/07/17 22:58 Patient seen and examined with resident. Case discussed and agreed with assessment and plan of management.
[2017-12-08] MEDS: Meropenem 1 GM in Sodium Chloride 0.9% 100 ML IVPB SCH ×2 (00:55→05:57)
[2017-12-08] MEDS: metroNIDAZOLE 500mg/100ml NS 100 ML IVPB SCH (05:02)
[2017-12-08 06:09] VITALS: BP 123/67; PULSE 71; TEMP 97.9; O2SAT 96
[2017-12-08] MEDS ORDERED: Rocuronium 10 mg/ml (5 ml) ONE (07:16)
[2017-12-08] MEDS ORDERED: Propofol 10 mg/ml Inj (20 ML) ONE (07:16)
[2017-12-08] MEDS ORDERED: Midazolam 2 MG/2 ML VIAL ONE (07:16)
[2017-12-08] MEDS ORDERED: Succinylcholine 200 mg/10 ml Inj IV ONE (07:17)
[2017-12-08] MEDS ORDERED: Neostigmine 1:1000 (1 mg/ml) Inj ONE (07:17)
[2017-12-08] MEDS ORDERED: Lidocaine 4% (Laryng-O-Jet) Kit MM ONE (07:17)
[2017-12-08] MEDS ORDERED: Lidocaine 1% 5ml Abboject ONE (07:17)
[2017-12-08] MEDS ORDERED: Phenylephrine 10 mg/ml Inj ONE (07:22)
== END 2017-12-08 06:30 | disposition short-term general hospital (02) | DRG 394 ==
LOC: H.TCU 15:26
PROVIDERS: ADMIT Hospitalist; ATTEND Hospitalist
PROC: F07Z5ZZ Bed Mobility Treatment (ICD-10-PCS; principal; 2017-11-30)
PROC: F07Z8ZZ Transfer Training Treatment (ICD-10-PCS; 2017-11-30)
PROC: F07Z9ZZ Gait Training/Functional Ambulation Treatment (ICD-10-PCS; 2017-11-30)
DX: Z43.4 Encounter for attention to other artificial openings of digestive tract (principal); K81.0 Acute cholecystitis; I10 Essential (primary) hypertension; I45.10 Unspecified right bundle-branch block; B96.20 Unspecified Escherichia coli [E. coli] as the cause of diseases classified elsewhere

== ENCOUNTER 2017-12-08 06:17 | Day surgery (SDC) | payer BC, MEDICARE ==
[2017-12-08] MEDS ORDERED: Bupivacaine HCl 0.5% PF (30 ml) Inj ONE (07:16)
[2017-12-08] MEDS ORDERED: Lactated Ringer's 1,000 ML IV ONE (07:30)
[2017-12-08 07:40] VITALS: BMI 22.6
[2017-12-08] MEDS ORDERED: ceFAZolin IV 1 gm in Dextrose 1 GM/50 ML BAG IVPB ONE (08:14)
[2017-12-08] MEDS ORDERED: Bupivacaine 0.5% 50 ML IJ ONE ×4 (08:28→09:15)
--- NOTE | 2017-12-08 09:21 | PCM.SURG1 ---
Surgeon's Initial Post Op Note - Surgeon's Notes Surgeon: Tariq Autocad Designer: Krish Roche PGY4 Type of Anesthesia: General Endo, Local Pre-Operative Diagnosis: Cholecystitis Operative Findings: Acutely inflamed gallbladder, densely adhered omentum Post-Operative Diagnosis: same Operation Performed: laparoscopic cholecystectomy Specimen/Specimens Removed: gallbladder Estimated Blood Loss: EBL {In ML}: 10 Blood Products Given: N/A Drains Used: No Drains Post-Op Condition: Good Date of Surgery/Procedure: 12/08/17 Time of Surgery/Procedure: 09:21
[2017-12-08] MEDS ORDERED: Lactated Ringer's 1,000 ML IV SCH (09:30)
[2017-12-08] MEDS ORDERED: Oxycodone/Acetaminophen 5/325 mg Tab PO PRN (09:35)
--- NOTE | 2017-12-08 10:22 | CP.PCM.HP ---
<Lily Gutierrez - Last Filed: 12/08/17 11:23> History of Present Illness - History of Present Illness History of Present Illness: 76 YO Male with PMHx of HTN presented today for lap yoni due to acute cholecystitis. Pt was admitted to [facility] on 11/26, at the time pt was found to have acute cholecystitis. General surgery was consulted and a cholecystotomy tube was placed to cool him down before surgery. Cardiology cleared patient for surgery during his stay after echocardiography was reviewed and revealed normal findings. Gallbladder culture revealed E. coli, ID was consulted and patient was placed on meropenem and flagyl. Surgery was postponed due to need for IV abx and elevated liver enzymes. Today, pt presented for lap yoni. Endorsing abdominal pain, mild. Denies chest pain, dyspnea, palpitations, n/v, fever and chills. Pt seen and examined POST-OP. PMD: Dr. Thompson PMHx: HTN, cholecystitis MEDS: Enalapril 5mg PO QD PSHx: Hemorrhoidectomy AllERGIES: NKDA FH: Non contributory SH: Denies cigarette, ETOH use, or illicit drugs Present on Admission - Present on Admission Any Indicators Present on Admission: No Review of Systems - Constitutional Constitutional: absent: Chills, Night Sweats - Cardiovascular Cardiovascular: absent: Chest Pain, Dyspnea, Palpitations - Respiratory Respiratory: absent: Cough, Dyspnea - Gastrointestinal Gastrointestinal: absent: Abdominal Pain, Diarrhea, Nausea, Vomiting - Genitourinary Genitourinary: absent: Difficulty Urinating, Dysuria Past Patient History - Past Medical History & Family History Past Medical History?: Yes - Past Social History Smoking Status: Never Smoked - CARDIAC Hx Cardiac Disorders: Yes Hx Hypertension: Yes - PULMONARY Hx Respiratory Disorders: No - NEUROLOGICAL Hx Neurological Disorder: No - HEENT Hx HEENT Problems: No - RENAL Hx Chronic Kidney Disease: No - ENDOCRINE/METABOLIC Hx Endocrine Disorders: No - HEMATOLOGICAL/ONCOLOGICAL Hx Blood Disorders: No Hx AIDS: No Hx Human Immunodeficiency Virus (HIV): No - INTEGUMENTARY Hx Dermatological Problems: No - MUSCULOSKELETAL/RHEUMATOLOGICAL Hx Musculoskeletal Disorders: No Hx Falls: No - GASTROINTESTINAL Hx Gastrointestinal Disorders: No Other/Comment: cholecystostomy with drainage bag - GENITOURINARY/GYNECOLOGICAL Hx Genitourinary Disorders: No - PSYCHIATRIC Hx Psychophysiologic Disorder: No Hx Substance Use: No - SURGICAL HISTORY Hx Surgeries: Yes Hx Appendectomy: No Hx Cholecystectomy: No Hx Herniorrhaphy: Yes Other/Comment: hemorrhoid removal - ANESTHESIA Hx Anesthesia: Yes Hx Anesthesia Reactions: No Has any member of the family had a problem w/ anesthesia?: No Meds Allergies/Adverse Reactions: Allergies Allergy/AdvReac Type Severity Reaction Status Date / Time No Known Allergies Allergy Verified 12/08/17 07:40 Physical Exam - Constitutional Appears: No Acute Distress - Head Exam Head Exam: NORMAL INSPECTION - Eye Exam Eye Exam: EOMI, Normal appearance - ENT Exam ENT Exam: Mucous Membranes Moist - Respiratory Exam Respiratory Exam: Clear to Auscultation Bilateral, NORMAL BREATHING PATTERN. absent: Wheezes - Cardiovascular Exam Cardiovascular Exam: REGULAR RHYTHM, +S1, +S2 - GI/Abdominal Exam GI & Abdominal Exam: Distended, Hypoactive Bowel Sounds, Soft Additional comments: Lap yoni incisions noted, dermabond - Extremities Exam Extremities exam: Positive for: normal inspection. Negative for: pedal edema Additional comments: scds on - Neurological Exam Neurological exam: Alert Additional comments: Drowsy, sleepy but answering questions when asked Results - Vital Signs Recent Vital Signs: Last Vital Signs Temp 97.7 F 12/08/17 10:05 Pulse 56 L 12/08/17 10:05 Resp 20 12/08/17 10:05 BP 141/72 12/08/17 10:05 Pulse Ox 100 12/08/17 10:05 Assessment & Plan - Assessment and Plan (Free Text) Assessment: Assessment/Plan: 76 YO Male with PMHx of HTN, admitted for acute cholecystitis. Cholecystitis -Acute, symptomatic -s/p lap yoni POD0 -gallbladder cx sig for Ecoli, D11 abx tx with Flagyl and Mepron -cont abx -Surgery on board; percocet on board, zofran for nausea -follow up path HTN -Chronic, controlled -Continue enalapril 5mg PO QD DVT prophylaxis - lovenox 40 mg SC daily <Jacki Arrieta - Last Filed: 12/09/17 11:26> Results - Vital Signs Recent Vital Signs: Last Vital Signs Temp 97.9 F 12/09/17 08:01 Pulse 79 12/09/17 08:01 Resp 19 12/09/17 08:01 BP 155/72 H 12/09/17 08:01 Pulse Ox 97 12/09/17 08:01 - Labs Result Diagrams: 12/09/17 05:25 12/09/17 05:25 Labs: Laboratory Results - last 24 hr 12/09/17 12/09/17 05:25 05:25 WBC 10.9 H D RBC 4.06 L Hgb 12.5 Hct 37.3 MCV 92.0 MCH 30.7 MCHC 33.4 RDW 14.4 Plt Count 518 H D Sodium 134 Potassium 4.1 Chloride 100 Carbon Dioxide 30 Anion Gap 8 L BUN 13 Creatinine 0.6 L Est GFR ( Amer) > 60 Est GFR (Non-Af Amer) > 60 Random Glucose 103 Calcium 8.4 Total Bilirubin 1.1 AST 153 H D ALT 249 H D Alkaline Phosphatase 287 H D Total Protein 6.3 Albumin 3.2 L Globulin 3.1 Albumin/Globulin Ratio 1.0 Attending/Attestation - Attestation I have personally seen and examined this patient.: Yes I have fully participated in the care of the patient.: Yes I have reviewed all pertinent clinical information: Yes Notes (Text): 12/09/17 11:25 Agree with findings and plan as above. Pt to be obs for one more day of ABX then d/c home once cleared by surgery.
[2017-12-08] MEDS: Meropenem 1 GM in Sodium Chloride 0.9% 100 ML IVPB SCH (17:05)
[2017-12-08] MEDS: metroNIDAZOLE 500mg/100ml NS 100 ML IVPB SCH (18:09)
[2017-12-09 00:34] VITALS: TEMP 97.9
[2017-12-09] MEDS: metroNIDAZOLE 500mg/100ml NS 100 ML IVPB SCH ×2 (00:54→09:07)
[2017-12-09] MEDS: Meropenem 1 GM in Sodium Chloride 0.9% 100 ML IVPB SCH ×2 (00:55→09:08)
[2017-12-09 07:04] LABS: HEMOGLOBIN 12.5 g/dL (12.0-18.0); MEAN CORPUSCULAR HEMOGLOBIN 30.7 pg (27.0-31.0); MEAN CORPUSCULAR HGB CONC 33.4 g/dL (33.0-37.0); RBC 4.06 Mil/uL (4.40-5.90); RED CELL DISTRIBUTION WIDTH 14.4 % (11.5-14.5); WHITE BLOOD COUNT 10.9 K/uL (4.8-10.8)
[2017-12-09 07:17] LABS: ALBUMIN 3.2 g/dL (3.5-5.0); ALT/SGPT 249 U/L (21-72); AST/SGOT 153 U/L (17-59); BLOOD UREA NITROGEN 13 mg/dl (9-20); CALCIUM 8.4 mg/dL (8.4-10.2); GFR NON-AFRICAN AMERICAN > 60
[2017-12-09 08:01] VITALS: BP 155/72; PULSE 79; RESP 19; O2SAT 97
--- NOTE | 2017-12-09 08:05 | CP.PCM.PN ---
Subjective - Date & Time of Evaluation Date of Evaluation: 12/09/17 Time of Evaluation: 08:03 - Subjective Subjective: Surgey: Dr. Sellers Pt seen and examined. No acute overnight events. States he feels well this morning and pain is well controlled. Admits to feeling a little bloated but denies nausea/vomiting. Tolerating liquids and ambulating. Denies fevers/chills. Objective - Vital Signs/Intake and Output Vital Signs (last 24 hours): Temp Pulse Resp BP Pulse Ox 97.9 F 79 19 155/72 H 97 12/09/17 08:01 12/09/17 08:01 12/09/17 08:01 12/09/17 08:01 12/09/17 08:01 - Medications Medications: Current Medications Acetaminophen (Tylenol 325mg Tab) 650 mg PO Q6 PRN PRN Reason: Fever >100.4 F Enalapril Maleate (Vasotec) 5 mg PO DAILY [facility] Enoxaparin Sodium (Lovenox) 40 mg SC DAILY [facility]; Protocol Metronidazole (Flagyl 500mg/100ml Ns) 100 mls @ 100 mls/hr IVPB Q8 [facility]; Protocol Last Admin: 12/09/17 00:54 Dose: 100 mls/hr Meropenem 1 gm/ Sodium (Chloride) 100 mls @ 100 mls/hr IVPB Q8 [facility]; Protocol Last Admin: 12/09/17 00:55 Dose: 100 mls/hr Ondansetron HCl (Zofran Inj) 4 mg IVP Q4H PRN PRN Reason: Nausea/Vomiting Oxycodone/Acetaminophen (Percocet 5/325 Mg Tab) 1 tab PO Q4 PRN PRN Reason: Pain, moderate (4-7) Stop: 12/11/17 09:36 Last Admin: 12/08/17 17:10 Dose: 1 tab - Labs Labs: 12/09/17 05:25 12/09/17 05:25 - Constitutional Appears: Well, No Acute Distress - Head Exam Head Exam: ATRAUMATIC, NORMOCEPHALIC - Eye Exam Eye Exam: Normal appearance - ENT Exam ENT Exam: Mucous Membranes Moist - Respiratory Exam Respiratory Exam: NORMAL BREATHING PATTERN - Cardiovascular Exam Cardiovascular Exam: RRR - GI/Abdominal Exam GI & Abdominal Exam: Distended, Soft, Tenderness (around incision sites, C/D/I with dermabond ). absent: Rebound - Extremities Exam Extremities Exam: absent: Calf Tenderness - Neurological Exam Neurological Exam: Alert, Awake, Oriented x3 - Skin Skin Exam: Dry, Warm Assessment and Plan - Assessment and Plan (Free Text) Assessment: 77M s/p lap yoni; POD#1 Plan: - advance to low fat diet - encourage ambulation & Incentive spirometry - ABX per ID recs - d/w Dr. Marlo Rhodes
[2017-12-09] MEDS ORDERED: Enoxaparin 40 mg Syringe SC SCH (09:00)
--- NOTE | 2017-12-09 11:29 | CP.PCM.PN ---
<Lily Gutierrez - Last Filed: 12/09/17 11:31> Subjective - Date & Time of Evaluation Date of Evaluation: 12/09/17 Time of Evaluation: 11:27 - Subjective Subjective: S/p lap yoni, POD1 No acute overnight events. Pt states that he has bloating and abdominal pain, well managed with pain meds. Passing small has this AM, no BMs. Pt states that this AM he was nauseous when eating. Objective - Vital Signs/Intake and Output Vital Signs (last 24 hours): Temp Pulse Resp BP Pulse Ox 97.9 F 79 19 155/72 H 97 12/09/17 08:01 12/09/17 08:01 12/09/17 08:01 12/09/17 08:01 12/09/17 08:01 - Medications Medications: Current Medications Acetaminophen (Tylenol 325mg Tab) 650 mg PO Q6 PRN PRN Reason: Fever >100.4 F Enalapril Maleate (Vasotec) 5 mg PO DAILY [facility] Last Admin: 12/09/17 09:11 Dose: 5 mg Enoxaparin Sodium (Lovenox) 40 mg SC DAILY [facility]; Protocol Last Admin: 12/09/17 09:08 Dose: 40 mg Metronidazole (Flagyl 500mg/100ml Ns) 100 mls @ 100 mls/hr IVPB Q8 [facility]; Protocol Last Admin: 12/09/17 09:07 Dose: 100 mls/hr Meropenem 1 gm/ Sodium (Chloride) 100 mls @ 100 mls/hr IVPB Q8 [facility]; Protocol Last Admin: 12/09/17 09:08 Dose: 100 mls/hr Ondansetron HCl (Zofran Inj) 4 mg IVP Q4H PRN PRN Reason: Nausea/Vomiting Oxycodone/Acetaminophen (Percocet 5/325 Mg Tab) 1 tab PO Q4 PRN PRN Reason: Pain, moderate (4-7) Stop: 12/11/17 09:36 Last Admin: 12/08/17 17:10 Dose: 1 tab - Labs Labs: 12/09/17 05:25 12/09/17 05:25 - Constitutional Appears: No Acute Distress - Eye Exam Eye Exam: Normal appearance - ENT Exam ENT Exam: Mucous Membranes Moist - Respiratory Exam Respiratory Exam: Clear to Ausculation Bilateral, NORMAL BREATHING PATTERN. absent: Wheezes - Cardiovascular Exam Cardiovascular Exam: REGULAR RHYTHM, +S1, +S2 - GI/Abdominal Exam GI & Abdominal Exam: Distended, Soft, Tenderness (around incision ), Normal Bowel Sounds. absent: Guarding, Rigid Additional comments: 4x incision noted, no discharge, clean dry and intact Dermabond noted, intact - Extremities Exam Extremities Exam: Normal Inspection. absent: Pedal Edema - Neurological Exam Neurological Exam: Alert, Awake - Skin Skin Exam: Normal Color Assessment and Plan - Assessment and Plan (Free Text) Assessment: Assessment/Plan: 76 YO Male with PMHx of HTN, admitted for acute cholecystitis. Cholecystitis -Acute, symptomatic -s/p lap yoni POD1 -transaminitis, likely 2/2 to post-op status -gallbladder cx sig for Ecoli, D12 abx tx with Flagyl and Mepron -Surgery on board; percocet and Tylenol on board, zofran for nausea -advance diet today -pending d/c once cleared by surgery HTN -Chronic, controlled -Continue enalapril 5mg PO QD DVT prophylaxis - lovenox 40 mg SC daily <Jacki Arrieta - Last Filed: 12/09/17 12:43> Objective - Vital Signs/Intake and Output Vital Signs (last 24 hours): Temp Pulse Resp BP Pulse Ox 97.9 F 79 19 155/72 H 97 12/09/17 08:01 12/09/17 08:01 12/09/17 08:01 12/09/17 08:01 12/09/17 08:01 - Medications Medications: Current Medications Acetaminophen (Tylenol 325mg Tab) 650 mg PO Q6 PRN PRN Reason: Fever >100.4 F Enalapril Maleate (Vasotec) 5 mg PO DAILY [facility] Last Admin: 12/09/17 09:11 Dose: 5 mg Enoxaparin Sodium (Lovenox) 40 mg SC DAILY [facility]; Protocol Last Admin: 12/09/17 09:08 Dose: 40 mg Metronidazole (Flagyl 500mg/100ml Ns) 100 mls @ 100 mls/hr IVPB Q8 [facility]; Protocol Last Admin: 12/09/17 09:07 Dose: 100 mls/hr Meropenem 1 gm/ Sodium (Chloride) 100 mls @ 100 mls/hr IVPB Q8 [facility]; Protocol Last Admin: 12/09/17 09:08 Dose: 100 mls/hr Ondansetron HCl (Zofran Inj) 4 mg IVP Q4H PRN PRN Reason: Nausea/Vomiting Oxycodone/Acetaminophen (Percocet 5/325 Mg Tab) 1 tab PO Q4 PRN PRN Reason: Pain, moderate (4-7) Stop: 12/11/17 09:36 Last Admin: 12/08/17 17:10 Dose: 1 tab - Labs Labs: 12/09/17 05:25 12/09/17 05:25 Attending/Attestation - Attestation I have personally seen and examined this patient.: Yes I have fully participated in the care of the patient.: Yes I have reviewed all pertinent clinical information, including history, physical exam and plan: Yes Notes (Text): 12/09/17 12:42 agree [facility] findings and plana s above. patient doing well no complaints, passing flatus. will await bm and recs from surgery for discharge.
--- NOTE | 2017-12-09 14:57 | CP.PCM.DIS ---
<Lily Gutierrez - Last Filed: 12/09/17 15:36> Provider - Provider Date of Admission: 12/08/17 09:52 Attending physician: Jacki Arrieta DO Time Spent in preparation of Discharge (in minutes): 35 Diagnosis - Discharge Diagnosis (1) Cholecystitis Status: Acute (2) HTN (hypertension) Status: Chronic Hospital Course - Lab Results Lab Results: Most Recent Lab Values WBC 10.9 K/uL (4.8-10.8) H D 12/09/17 05:25 RBC 4.06 Mil/uL (4.40-5.90) L 12/09/17 05:25 Hgb 12.5 g/dL (12.0-18.0) 12/09/17 05:25 Hct 37.3 % (35.0-51.0) 12/09/17 05:25 MCV 92.0 fl (80.0-94.0) 12/09/17 05:25 MCH 30.7 pg (27.0-31.0) 12/09/17 05:25 MCHC 33.4 g/dL (33.0-37.0) 12/09/17 05:25 RDW 14.4 % (11.5-14.5) 12/09/17 05:25 Plt Count 518 K/uL (130-400) H D 12/09/17 05:25 Sodium 134 mmol/l (132-148) 12/09/17 05:25 Potassium 4.1 MMOL/L (3.6-5.0) 12/09/17 05:25 Chloride 100 mmol/L (98-107) 12/09/17 05:25 Carbon Dioxide 30 mmol/L (22-30) 12/09/17 05:25 Anion Gap 8 (10-20) L 12/09/17 05:25 BUN 13 mg/dl (9-20) 12/09/17 05:25 Creatinine 0.6 mg/dl (0.8-1.5) L 12/09/17 05:25 Est GFR ( Amer) > 60 12/09/17 05:25 Est GFR (Non-Af Amer) > 60 12/09/17 05:25 Random Glucose 103 mg/dL (75-110) 12/09/17 05:25 Calcium 8.4 mg/dL (8.4-10.2) 12/09/17 05:25 Total Bilirubin 1.1 mg/dl (0.2-1.3) 12/09/17 05:25 AST 153 U/L (17-59) H D 12/09/17 05:25 ALT 249 U/L (21-72) H D 12/09/17 05:25 Alkaline Phosphatase 287 U/L (38-126) H D 12/09/17 05:25 Total Protein 6.3 G/DL (6.3-8.2) 12/09/17 05:25 Albumin 3.2 g/dL (3.5-5.0) L 12/09/17 05:25 Globulin 3.1 gm/dL (2.2-3.9) 12/09/17 05:25 Albumin/Globulin Ratio 1.0 (1.0-2.1) 12/09/17 05:25 - Hospital Course Hospital Course: 76 YO Male with PMHx of HTN, admitted for acute cholecystitis. Surgery was consulted, s/p zainab vallejo, POD1. Patient is doing well today, endorsing minimal pain, ambulating, good PO intake, and passing gas. Completed 12 days course of abx Meropenem and Flagyl. Pt cleared by surgery for d/c home, and pt is req uesting to go home. Will d/c patient home with follow up with PMD and in surgery, Dr. Ramos in 1 week. Alberto Ribera Discharge Exam - Head Exam Head Exam: ATRAUMATIC, NORMOCEPHALIC - Eye Exam Eye Exam: EOMI - ENT Exam ENT Exam: Mucous Membranes Moist - Respiratory Exam Respiratory Exam: Clear to PA & Lateral, NORMAL BREATHING PATTERN. absent: Wheezes - Cardiovascular Exam Cardiovascular Exam: REGULAR RHYTHM, +S1, +S2 - GI/Abdominal Exam GI & Abdominal Exam: Distended (mild), Normal Bowel Sounds, Soft, Tenderness (around incision sites). absent: Firm, Guarding Additional comments: 4small incisions noted, closed with dermabond, clean, dry and intact. - Extremities Exam Extremities exam: normal inspection - Back Exam Back exam: NORMAL INSPECTION - Neurological Exam Neurological exam: Alert, Oriented x3 - Skin Skin Exam: Normal Color Discharge Plan - Discharge Medications Prescriptions: Docusate Sodium [Colace] 100 mg PO DAILY #30 capsule RX: oxyCODONE/Acetaminophen [Percocet 5/325 mg Tab] 1 tab PO Q8 #15 tab - Follow Up Plan Condition: GOOD Disposition: HOME/ ROUTINE Patient education suggested?: Yes Instructions: Cholecystectomy, Laparoscopic Surgery Additional Instructions: MAY SHOWER. NO HEAVY LIFTING. FOLLOW UP PMD AND WITH SURGERY/DR. RAMOS IN 1 WEEK PLEASE RETURN TO ED WITH WORSENING PAIN, FEVER OVER 100.4 WITH TYLENOL Referrals: Rio Ramos MD [Staff Provider] - <Jacki Arrieta - Last Filed: 12/10/17 09:46> Provider - Provider Date of Admission: 12/08/17 09:52 Attending physician: Jacki Arrieta DO Hospital Course - Lab Results Lab Results: Most Recent Lab Values WBC 10.9 K/uL (4.8-10.8) H D 12/09/17 05:25 RBC 4.06 Mil/uL (4.40-5.90) L 12/09/17 05:25 Hgb 12.5 g/dL (12.0-18.0) 12/09/17 05:25 Hct 37.3 % (35.0-51.0) 12/09/17 05:25 MCV 92.0 fl (80.0-94.0) 12/09/17 05:25 MCH 30.7 pg (27.0-31.0) 12/09/17 05:25 MCHC 33.4 g/dL (33.0-37.0) 12/09/17 05:25 RDW 14.4 % (11.5-14.5) 12/09/17 05:25 Plt Count 518 K/uL (130-400) H D 12/09/17 05:25 Sodium 134 mmol/l (132-148) 12/09/17 05:25 Potassium 4.1 MMOL/L (3.6-5.0) 12/09/17 05:25 Chloride 100 mmol/L (98-107) 12/09/17 05:25 Carbon Dioxide 30 mmol/L (22-30) 12/09/17 05:25 Anion Gap 8 (10-20) L 12/09/17 05:25 BUN 13 mg/dl (9-20) 12/09/17 05:25 Creatinine 0.6 mg/dl (0.8-1.5) L 12/09/17 05:25 Est GFR ( Amer) > 60 12/09/17 05:25 Est GFR (Non-Af Amer) > 60 12/09/17 05:25 Random Glucose 103 mg/dL (75-110) 12/09/17 05:25 Calcium 8.4 mg/dL (8.4-10.2) 12/09/17 05:25 Total Bilirubin 1.1 mg/dl (0.2-1.3) 12/09/17 05:25 AST 153 U/L (17-59) H D 12/09/17 05:25 ALT 249 U/L (21-72) H D 12/09/17 05:25 Alkaline Phosphatase 287 U/L (38-126) H D 12/09/17 05:25 Total Protein 6.3 G/DL (6.3-8.2) 12/09/17 05:25 Albumin 3.2 g/dL (3.5-5.0) L 12/09/17 05:25 Globulin 3.1 gm/dL (2.2-3.9) 12/09/17 05:25 Albumin/Globulin Ratio 1.0 (1.0-2.1) 12/09/17 05:25 Attending/Attestation - Attestation I have personally seen and examined this patient.: Yes I have fully participated in the care of the patient.: Yes I have reviewed all pertinent clinical information, including history, physical exam and plan: Yes Notes (Text): 12/10/17 09:45 Agree with findings and plan as above. Patient stable for discharge from surgical and medical standpoints. Patient to follow up with PCP and Surgery in one week.
--- NOTE | 2017-12-25 07:46 | OP ---
PROCEDURE DATE: 12/08/2017 PREOPERATIVE DIAGNOSIS: Acute cholecystitis. POSTOPERATIVE DIAGNOSIS: Acute cholecystitis. OPERATION PERFORMED: Laparoscopic cholecystectomy. SURGEON: Rio Potter MD LIEN SEARCHER: Jed Roche MD SECOND LIEN SEARCHER: Sales Development Specialist. OPERATIVE FINDINGS: Cystic duct, cystic artery identified. Critical view obtained. ESTIMATED BLOOD LOSS: Minimal. DESCRIPTION OF PROCEDURE: The patient was taken to the operating room and placed supine on the operating room table. After induction of general anesthesia, the abdomen was prepped and draped in a standard surgical fashion. A Veress needle was inserted into the abdomen through the umbilicus. The abdomen was insufflated. Once sufficient CO2 was entered into the abdomen, a 10-mm trocar was placed through the umbilicus and a diagnostic laparoscopy was performed. The patient was then placed into the reversed Trendelenburg left side down position and the subxiphoid and two right-sided trocars were placed under direct vision. The gallbladder was grasped from the fundus and pulled upwards and the neck of the gallbladder was pulled outwards exposing the triangle of Calot. Blunt dissection with a [place] dissector was used to isolate the contents of the triangle of Calot. Once the contents of the triangle were isolated, the cystic duct was identified and seen to be entering the gallbladder. The cystic duct was then clipped and divided. The cystic artery was then encircled clipped and divided in a similar fashion. The gallbladder was then taken off the gallbladder fossa using the electrocautery. Once the gallbladder was off the gallbladder fossa, it was placed into an EndoCatch bag. The right upper quadrant was copiously irrigated. The gallbladder fossa was checked for bleeding. There was no evidence of bleeding. The irrigant was removed. The gallbladder was then removed via the umbilical trocar site. The trocars were then removed under direct vision. The umbilical trocar site was closed using #0 Vicryl. The skin incisions were closed using #4-0 Monocryl and the patient had 10 cc of 1% Marcaine infiltrated into all the wounds. The patient tolerated the procedure well. There were no complications. The sponge, instrument, and needle counts were correct at the end of the case. POSTOPERATIVE CONDITION: The patient was then awakened from general anesthesia, transported to the recovery room in satisfactory condition. Rio Potter MD [facility] # [id number]
== END 2017-12-09 15:36 | disposition home or self-care (01) ==
LOC: H.OPSURG 06:17 → H.ERHOLD 09:52 → UNDOADMIN 09:52 → H.MEDSURG1 12:32 → H.ERHOLD 12:32 → H.OPSURG 12-09 15:36 → UNDODISIN 12-09 16:15
PROVIDERS: ATTEND Surgery
PROC: 0FT44ZZ Resection of Gallbladder, Percutaneous Endoscopic Approach (ICD-10-PCS; principal; 2017-12-08 07:45)
DX: K81.0 Acute cholecystitis (principal); I10 Essential (primary) hypertension; R74.0 Nonspecific elevation of levels of transaminase and lactic acid dehydrogenase [LDH]
CPT/HCPCS: 36415; 47562; 80053; 85027; 88304; J0690; J1650; J2185; J2270; J7030; J7120